=== PATIENT | male | born 1970 | race Caucasian/White ===

== ENCOUNTER 2018-06-08 09:41 | Inpatient (IN) | payer OTHER ==
--- OUTSIDE RECORDS SUMMARY | 2018-06-08 10:30 | XMS REPORT ---
:1970 External Reference #:[id number] Author Organization [facility] Address [address] [place] [address] Phone [phone] Care Team Providers Name Role Phone Chucho Yeager M.D. 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 Active Family History Date Family Member(s) Problem(s) Comments Father No Current Problems Mother No Current Problems Social History Type Date Description Comments Marital Status Single Occupation [employer] Work Status Full-Time Employment ETOH Use Denies alcohol use Smoking Patient is a former smoker QUIT: 2007 Recreational Drug Use Denies Drug Use Daily Caffeine Consumes on average 3 cups of regular coffee per day Allergies, Adverse Reactions, Alerts Date Description Reaction Status Severity Comments 05/26/2018 Simvastatin CRAMPS active Medications Medication Date Status Form Strength Qnty SIG Indications Ordering Provider Metformin HCL / Active Tablets 1000mg Take One Tablet Unknown 0000 By Mouth Twice A Day Lantus 00/ Active Solution 100Unit/M Inject 20 Units Unknown Solostar 0000 Pen-Injec L Subcutaneously t AT Bedtime Lisinopril / Active Tablets 5mg Take One Tablet Unknown 0000 By Mouth Every Day Fenofibrate 00/ Active Capsules 145mg Unknown 0000 Results Description No Information Procedures Description No Information Plan of Care 05/26/2018 - Hunter Ram M.D.[id number] Type 2 diab with mild nonp rtnop without macular edema, biComments:Smoking can increase the risk of developing or worsening any eye related disease, as well as affect your overall health. If you are a smoker, we strongly recommend that you quit.If you are not a smoker , we strongly recommend that you do not start. I can detect diabetic changes in your eyes. Proper control of your diabetes is important for the health of your eyes. It is important that you keep all of your follow up appointments.Follow up:1 Year Follow Up DFE You can expect to have your eyes dilated at your next visit. If Dr. Ram orders any additional testing, it may require extra time. We recommend that you bring sunglasses, as dilation drops often make you light sensitive until they wear off. We always recommend you bring someone to drive you home if you are uncomfortable driving with your eyes dilated. If you have any questions before your next visit, feel free to call our office at .H25.13 Age-related nuclear cataract, bilateralComments:You have been diagnosed with cataracts. If you are happy with your vision as it is now, then we willsee you at your next scheduled appointment. If you feel like your vision is getting worse before your scheduled appointment, please call Jerrica or Carolyn at [phone].H52.13 Myopia, bilateralComments:You have Myopia, or near sightedness. I have given you a prescription for glasses.H52.4 Presbyopia
--- OUTSIDE RECORDS SUMMARY | 2018-06-08 10:30 | XMS REPORT ---
:1970 External Reference #:[id number] Author Organization [facility] Address [address] [place] [address] Phone [phone] Care Team Providers Name Role Phone Chucho Yeager MD Care Team Information Language Assistant Unavailable Chucho Yeager MD Primary Care Physician Unavailable Payers Type Date Identification Numbers Payment Provider Subscriber Health Maintenance Effective: Policy Number: Ronnie Nguyen Organization (O) 11/22/[id number] [facility] Group Number: [id number] [id number] Group Name: [facility] [place] [address] PayID: [id number] Problems Date Description Provider Status Onset: 09/13/2012 Type II diabetes mellitus uncontrolled Chucho Yeager M.D. Active Onset: 10/10/2012 Hyperlipidemia Chucho Yeager M.D. Active Onset: 01/20/2016 Essential hypertension Chucho Yeager M.D. Active Onset: 01/20/2016 Mixed hyperlipidemia Chucho Yeager M.D. Active Family History Date Family Member(s) Problem(s) Comments Mother Diabetes Mellitus, II Mother due to Diabetes () - age 60 Social History Type Date Description Comments Lives With Female Partner Work Status Full-Time Employment ETOH Use Occasional Smoking Patient is a former smoker > 10 years Recreational Drug Use Denies Drug Use Daily Caffeine Consumes on average 3 cups of coffee per day Exercise Type/Frequency Exercises regularly walks regularly , some lifting Allergies, Adverse Reactions, Alerts Date Description Reaction Status Severity Comments 01/02/2013 Simvastatin cramps active 09/06/2012 NKDA inactive Medications Medication Date Status Form Strength Qnty SIG Indications Ordering Provider Christi Haley 05/12 Active Solution 100Unit/M 15ml inject 20 Chucho Pen-Injec L units sub Darlow, t every under M.D. the skin at hs BD Pen 05/12 Active Misc 31G X 8 100un use daily w/ Chucho Bradford Needle/Short/Ult mm its lantus - dx: hannah Yeagerine/31G X e11.9 - last M.D. 04/06" seen 05/11/18 Cyclobenzaprine 03/21 Active Tablets 5mg 14tab take 1-2 M79.662 Maria Dolores Jessica HCL s tablets by Bailey, mouth at [employer] night as needed for muscle spasm Fenofibrate 02/15 Active Capsules 67mg 30cap Take One Anita Micronized s Capsule By Nabor, Mouth Every [employer] Day Fenofibrate 01/11 Active Tablets 145mg 90tab 1 by mouth Anita s every day JAVIER Tomlin Cialis 03/21 Active Tablets 5mg 10tab Take 1 G99.0 s Tablet By Toy, Mouth 20 M.D. Miinutes Before [place] Onetouch Ultra 11/26 Active Kit W/Device 1unit test blood Tarsha s sugar twice [facility], or as Afnp-C directed daily dx: e11.9 Onetouch Ultra 11/26 Active Strips 100un test blood Chucho A. Smart Test its sugar twice Darlow, Strips daily or as M.D. directed dx:e11.9 last office visit 01/27/16 Lisinopril 01/07 Active Tablets 5mg 30tab Take One E11.65 Anita /2015 s Tablet By Nabor, Mouth Every [employer] Day Metformin HCL 08/23 Active Tablets 1000mg 60tab take one E11.65 Anita /2013 s tablet by Nabor, mouth twice [employer] a day Lantus 05/12 Hx Solution 100Unit/M 3unit 20 units at Chucho L s bedtime Dean Yeager M.DAdilene 05/12 Levofloxacin 01/11 Hx Tablets 500mg 10tab 1 by mouth J01.90 Chucho A. s every day Dean Yeager M.DAdilene 01/21 Glyxambi 01/11 Hx Tablets 25-5mg 90tab 1 by mouth E11.65 s every day [facility], - [facility] 05/12 Keflex 10/21 Hx Capsules 500mg 14cap 1 by mouth L03.032 s twice a day [facility], - x 7 days [facility] 09/06 Fenofibrate Hx Capsules 67mg 30cap take one Anita Micron s capsule by [facility], - mouth every [employer] Onetouch Basic 11/26 Hx Kit W/Device 1unit test blood Agenda A. s sugar twice [facility], - or as M.D. 11/26 daily dx: E11.9 Glyxambi 06/17 Hx Tablets 10-5mg 30tab take one E11.65 Chucho . [facility], [facility] mouth every M.D. Work Excuse 01/16 Hx patient is 250.02 under [facility], - medical care [employer] 02/17 and needs administer insulin daily, thusly requires needles Pen [place] 31G 01/15 Hx Misc 31G 120un use with E11.65 Anita X its solostar/perla [facility], - tus pen 1 [employer] 05/12 twice a day Lantus Solostar 01/08 Hx Solution 100Unit/M QS inject 40 250.02 Pen-Injec L units every [facility], - t evening [facility] 06/17 Januvia 05/28 Hx Tablets 100mg 30tab Take One Chucho A. s Tablet By Darlow, - Mouth Every M.D. Viagra 05/28 Hx Tablets 100mg 10tab Take 1/2 To G99.0 Chucho A. s 1 Tablet By Darlow, - Mouth 15 M.D. Prior To Sexual Activity as Directed Januvia 11/07 Hx Tablets 50mg 30tab Take One Chucho A. s Tablet By Darlow, - Mouth Every M.D. Glipizide ER 08/23 Hx Tablets 10mg 30tab Take One 250.02 Chucho A. ER 24HR s Tablet By Darlow, - Mouth Every M.D. Fenofibrate 01/30 Hx Capsules 67mg 30cap Take One 272.4 Chucho A. Micron s Capsule By Darlow, - Mouth Every M.D. Glipizide ER 01/02 Hx Tablets 5mg 30tab Take One 250.02 Chucho A. ER 24HR s Tablet By Darlow, - Mouth Every M.D. Amoxicillin/Pota 12/17 Hx Tablets 875-125mg 20tab 1 po bid 461.0 Dunia ssi s with food Rodri, Clavulanate - [employer] 01/02 Simvastatin 11/23 Hx Tablets 10mg 30tab take 1 272.4 Chucho A. s tablet at [facility], - bedtime M.D. 01/02 Metformin HCL 10/10 Hx Tablets 500mg 90tab Take One 250.02 Chucho A. s Tablet By Darjacquie, - Mouth Every M.D. 08/23 Morning And Take Two Tablets By Mouth AT Bedtime Freestyle 09/12 Hx Misc 100un test bs bid Chucho A. or as Toy - directed M.D. 11/26 /2015 250.02 Freestyle Test 09/12 Hx Strips 100un use every Chucho A. Strips its day or as Toy - directed M.D. 11/26 dx:250.02 Nicoderm CQ 09/06 Hx Patches 14mg/24HR 30uni 1 qd x 1 305.1 Chucho A. 24HR ts month Toy - M.D. 10/10 Lisinopril 09/06 Hx Tablets 2.5mg 30tab Take Two 250.02 Chucho A. s Tablets By Darlow, - Mouth In The M.D. 01/07 Immunizations CPT Code Status Date Vaccine Lot # [id number] Given 09/07/2017 Influenza Vac, Quadrivalent, Slit Virus, Im [id number] Given 10/21/2016 Influenza Vac, Quadrivalent, Slit Virus, Im [id number] Given 01/27/2016 Influenza Vac, Quadrivalent, Slit Virus, Im [id number] 16887 Given 11/06/2013 Preservative free flu 3 yrs+ and older [id number] 62552 Given 09/06/2012 Tdap Tetanus, W Pertussis [id number] Given 09/06/2012 DO Not Use Split Influenza Virus Vaccine [id number] Vital Signs Date Vital Result Comment 05/16/2018 BP Systolic 122 mmHg BP Diastolic 78 mmHg Heart Rate 86 /min Body Temperature 98.0 F Respiratory Rate 16 /min 05/11/2018 BP Systolic 110 mmHg BP Diastolic 78 mmHg Heart Rate 78 /min Body Temperature 97.9 F Respiratory Rate 18 /min Height 71.5 inches 5'11.50" Weight 222.00 lb BMI (Body Mass Index) 30.5 kg/m2 03/21/2018 BP Systolic 142 mmHg BP Diastolic 92 mmHg Heart Rate 92 /min Height 71.5 inches 5'11.50" Weight 231.00 lb BMI (Body Mass Index) 31.8 kg/m2 01/11/2018 BP Systolic 124 mmHg BP Diastolic 74 mmHg Heart Rate 76 /min Body Temperature 98.1 F Respiratory Rate 16 /min Height 71.5 inches 5'11.50" Weight 225.00 lb BMI (Body Mass Index) 30.9 kg/m2 10/11/2017 BP Systolic 130 mmHg BP Diastolic 80 mmHg Heart Rate 96 /min Body Temperature 97.7 F Height 71.5 inches 5'11.50" Weight 221.00 lb BMI (Body Mass Index) 30.4 kg/m2 09/07/2017 BP Systolic 124 mmHg BP Diastolic 80 mmHg Heart Rate 84 /min Body Temperature 99.0 F Respiratory Rate 16 /min Height 71.5 inches 5'11.50" Weight 224.00 lb BMI (Body Mass Index) 30.8 kg/m2 10/21/2016 BP Systolic 116 mmHg BP Diastolic 72 mmHg Heart Rate 120 /min Body Temperature 98.1 F Height 71.5 inches 5'11.50" Weight 220.12 lb BMI (Body Mass Index) 30.3 kg/m2 01/27/2016 BP Systolic 138 mmHg BP Diastolic 82 mmHg Heart Rate 80 /min Body Temperature 97.9 F Respiratory Rate 18 /min Height 71.5 inches 5'11.50" Weight 220.00 lb BMI (Body Mass Index) 30.3 kg/m2 Right Visual Acuity Distance 20/20 With Corrective Lenses Left Visual Acuity Distance 20/20 01/20/2016 BP Systolic 130 mmHg BP Diastolic 90 mmHg Heart Rate 80 /min Body Temperature 97.2 F Respiratory Rate 16 /min Height 71.5 inches 5'11.50" Weight 220.00 lb BMI (Body Mass Index) 30.3 kg/m2 07/01/2015 BP Systolic 132 mmHg BP Diastolic 80 mmHg Heart Rate 80 /min Body Temperature 98.0 F Respiratory Rate 18 /min Height 71.5 inches 5'11.50" Weight 223.00 lb BMI (Body Mass Index) 30.7 kg/m2 06/07/2015 BP Systolic 152 mmHg BP Diastolic 86 mmHg Heart Rate 88 /min Body Temperature 98.5 F Respiratory Rate 16 /min Height 71.5 inches 5'11.50" Weight 230.50 lb BMI (Body Mass Index) 31.7 kg/m2 Right Visual Acuity Distance 20/20 with glasses Left Visual Acuity Distance 20/20 05/27/2015 BP Systolic 124 mmHg BP Diastolic 80 mmHg Heart Rate 72 /min Body Temperature 97.1 F Respiratory Rate 16 /min Height 71.5 inches 5'11.50" Weight 228.00 lb BMI (Body Mass Index) 31.4 kg/m2 02/18/2015 BP Systolic 124 mmHg BP Diastolic 80 mmHg Heart Rate 98 /min Body Temperature 97.5 F Height 71.5 inches 5'11.50" Weight 233.00 lb BMI (Body Mass Index) 32.0 kg/m2 01/16/2015 BP Systolic 124 mmHg BP Diastolic 82 mmHg Heart Rate 88 /min Body Temperature 98.2 F Respiratory Rate 16 /min Height 71.5 inches 5'11.50" Weight 233.00 lb BMI (Body Mass Index) 32.0 kg/m2 01/07/2015 BP Systolic 140 mmHg BP Diastolic 100 mmHg Heart Rate 100 /min Body Temperature 98.2 F Respiratory Rate 16 /min Height 71.5 inches 5'11.50" Weight 233.00 lb BMI (Body Mass Index) 32.0 kg/m2 06/06/2014 BP Systolic 154 mmHg BP Diastolic 110 mmHg Heart Rate 78 /min Body Temperature 98.4 F Respiratory Rate 15 /min Height 71.5 inches 5'11.50" Weight 231.00 lb BMI (Body Mass Index) 31.8 kg/m2 Right Visual Acuity Distance 20/20 corrected Left Visual Acuity Distance 20/20 corrected 05/28/2014 BP Systolic 140 mmHg BP Diastolic 90 mmHg Heart Rate 88 /min Body Temperature 98.1 F Respiratory Rate 16 /min Height 71.5 inches 5'11.50" Weight 231.00 lb BMI (Body Mass Index) 31.8 kg/m2 11/06/2013 BP Systolic 130 mmHg BP Diastolic 92 mmHg Heart Rate 88 /min Body Temperature 98.4 F Respiratory Rate 12 /min Height 71.5 inches 5'11.50" Weight 232.00 lb BMI (Body Mass Index) 31.9 kg/m2 01/30/2013 BP Systolic 120 mmHg BP Diastolic 80 mmHg Heart Rate 88 /min Body Temperature 97.8 F Respiratory Rate 12 /min Height 71.5 inches 5'11.50" Weight 213.00 lb BMI (Body Mass Index) 29.3 kg/m2 01/02/2013 BP Systolic 120 mmHg BP Diastolic 80 mmHg Heart Rate 88 /min Body Temperature 97.9 F Respiratory Rate 16 /min Height 71.5 inches 5'11.50" Weight 210.00 lb BMI (Body Mass Index) 28.9 kg/m2 12/17/2012 BP Systolic 130 mmHg BP Diastolic 80 mmHg Heart Rate 82 /min Body Temperature 98.5 F Height 71.5 inches 5'11.50" Weight 213.00 lb BMI (Body Mass Index) 29.3 kg/m2 11/23/2012 BP Systolic 120 mmHg BP Diastolic 78 mmHg Heart Rate 84 /min Body Temperature 97.1 F Respiratory Rate 12 /min Height 71.5 inches 5'11.50" Weight 211.00 lb BMI (Body Mass Index) 29.0 kg/m2 10/10/2012 BP Systolic 122 mmHg BP Diastolic 80 mmHg Heart Rate 84 /min Body Temperature 96.7 F Respiratory Rate 16 /min Height 71.5 inches 5'11.50" Weight 210.00 lb BMI (Body Mass Index) 28.9 kg/m2 09/06/2012 BP Systolic 136 mmHg BP Diastolic 100 mmHg Heart Rate 76 /min Body Temperature 97.6 F Respiratory Rate 16 /min Height 71.5 inches 5'11.50" Weight 212.00 lb BMI (Body Mass Index) 29.2 kg/m2 Right Visual Acuity Distance 20/20 Left Visual Acuity Distance 20/20 Results Test Date Test Result H/L Range Note Lipid Profile 05/11/2018 Cholesterol 230 mg/dL High 120-200 Triglycerides 139 mg/dL 30-200 HDL Cholesterol 50 mg/dL 30-70 LDL (Calculated) 152 CALC High 0-129 VLDL Cholesterol 28 mg/dL 0-50 HDL Risk Factor 4.6 CALC High 0.0-4.4 Comprehensive Metabolic Prof 05/11/2018 Sodium 134 mEq/L 134-149 Potassium 4.4 mEq/L 3.6-5.5 Chloride 97 mEq/L 94-112 Carbon Dioxide 24 mEq/L 21-32 Glucose 245 mg/dL High 70-105 1 BUN 18 mg/dL 6-26 Creatinine 0.6 mg/dL 0.6-1.4 BUN/Creat Ratio 30.0 CALC 8.0-36.0 Calcium 9.8 mg/dL 8.6-10.2 Total Protein 7.2 g/dL 6.4-8.3 Albumin 4.7 g/dL 3.8-5.5 Globulin 2.5 g/dL 2.0-4.8 A/G Ratio 1.9 CALC 0.6-2.3 Alk. Phosphatase 49 U/L 22-95 Alt (SGPT) 19 U/L 7-35 Ast (Sgot) 13 U/L 5-34 Total Bilirubin 0.9 mg/dL 0.2-1.3 GFR Non- >60 ml/min/1.73m^ >=60 GFR >60 ml/min/1.73m^ >=60 Laboratory test finding 05/11/2018 Hemoglobin A1c (Fma) 10.7 % % High 4.1- 5.7 Lipid Profile 01/11/2018 Cholesterol 212 mg/dL High 120-200 Triglycerides 186 mg/dL 30-200 HDL Cholesterol 47 mg/dL 30-70 LDL (Calculated) 128 CALC 0-129 VLDL Cholesterol 37 mg/dL 0-50 HDL Risk Factor 4.5 CALC High 0.0-4.4 Comprehensive Metabolic Prof 01/11/2018 Sodium 140 mEq/L 134-149 Potassium 4.4 mEq/L 3.6-5.5 Chloride 104 mEq/L 94-112 Carbon Dioxide 22 mEq/L 21-32 Glucose 385 mg/dL High 70-105 2 BUN 14 mg/dL 6-26 Creatinine 0.6 mg/dL 0.6-1.4 BUN/Creat Ratio 23.3 CALC 8.0-36.0 Calcium 9.7 mg/dL 8.6-10.2 Total Protein 7.2 g/dL 6.4-8.3 Albumin 4.6 g/dL 3.8-5.5 Globulin 2.6 g/dL 2.0-4.8 A/G Ratio 1.8 CALC 0.6-2.3 Alk. Phosphatase 48 U/L - Alt (SGPT) 17 U/L 7-35 Ast (Sgot) 10 U/L 5-34 Total Bilirubin 0.8 mg/dL 0.2-1.3 GFR Non- >60 ml/min/1.73m^ >=60 GFR >60 ml/min/1.73m^ >=60 Laboratory test finding 01/11/2018 Hemoglobin A1c (Fma) 9.9 % High 4.1- 5.7 Comprehensive Metabolic Prof 10/07/2017 Sodium 137 mEq/L 134-149 Potassium 4.5 mEq/L 3.6-5.5 Chloride 103 mEq/L 94-112 Carbon Dioxide 21 mEq/L 21-32 Glucose 231 mg/dL High 70-105 3 BUN 18 mg/dL 6-26 Creatinine 0.6 mg/dL 0.6-1.4 BUN/Creat Ratio 30.0 CALC 8.0-36.0 Calcium 9.3 mg/dL 8.6-10.2 Total Protein 6.8 g/dL 6.4-8.3 Albumin 4.5 g/dL 3.8-5.5 Globulin 2.3 g/dL 2.0-4.8 A/G Ratio 2.0 CALC 0.6-2.3 Alk. Phosphatase 44 U/L -95 Alt (SGPT) 15 U/L 7-35 Ast (Sgot) 11 U/L 5-34 Total Bilirubin 1.1 mg/dL 0.2-1.3 GFR Non- >60 ml/min/1.73m^ >=60 GFR >60 ml/min/1.73m^ >=60 Complete Blood Count 10/07/2017 WBC 7.1 x10^3/UL 3.6-9.6 RBC 5.29 x10^6/UL 3.90-5.70 HGB 15.9 g/dL 12.1-17.2 HCT 46 % 36-50 MCV 87.0 fL 82.2-97.4 MCH 30.1 pg 27.6-33.3 MCHC 34.5 g/dL 33.0-35.5 RDW 13.1 % 11.6-13.7 PLT 152 x10^3/UL 150-400 MPV 8.1 fL 7.4-10.4 Gran # 5.1 x10^3/UL 1.5-7.2 Lymph# 1.7 x10^3/UL 0.7-4.9 Kidder# 0.3 x10^3/UL 0.1-0.9 Gran % 70.6 % 42.2-75.2 Lymph % 24.3 % 20.5-51.1 Kidder% 5.1 % 1.7-9.3 Lipid Profile 10/07/2017 Cholesterol 201 mg/dL High 120-200 Triglycerides 82 mg/dL 30-200 HDL Cholesterol 44 mg/dL 30-70 LDL (Calculated) 141 CALC High 0-129 VLDL Cholesterol 16 mg/dL 0-50 HDL Risk Factor 4.6 CALC High 0.0-4.4 Laboratory test finding 09/07/2017 Hemoglobin A1c (Fma) 9.5 % High 4.1- 5.7 Laboratory test finding 10/21/2016 Hemoglobin A1c (Fma) 9.1 % High 4.1- 5.7 Ua - Non Micro (Fma) 01/27/2016 Appearance CLEAR Color YELLOW Glucose, Urine (Fma/CMC/CTX) 500 Bilirubin NEG Ketones 15 SP Grav 1.020 Blood TRACE-LYSED PH 6.0 Protein 30 Urobil 0.2 Nitrite NEG Leukocytes (Fma/CMC/Centrex) NEG Microalb/Creatinine, Random 01/20/2016 Microalb, Random 82.4 mg/L High 0.5 -37 Ur (Fma/CMC/CTX) Urine Creatinine (F/C/CTX) 3.4 nmol/L Microalb.,Creatinine (F/C/CTX) 24.2 Laboratory test finding 01/20/2016 Hemoglobin A1c (Fma) 7.9 % High 4.1- 5.7 Lipid Profile 01/20/2016 Cholesterol 229 mg/dL High 120-200 Triglycerides 112 mg/dL 30-200 HDL Cholesterol 49 mg/dL 30-70 LDL (Calculated) 158 CALC High 0-129 VLDL Cholesterol 22 mg/dL 0-50 HDL Risk Factor 4.7 CALC High 0.0-4.4 Comprehensive Metabolic Prof 01/20/2016 Sodium 134 mEq/L 134-149 Potassium 4.0 mEq/L 3.6-5.5 Chloride 99 mEq/L 94-112 Carbon Dioxide 25 mEq/L 21-32 Glucose 201 mg/dL High 70-105 4 BUN 15 mg/dL 6-26 Creatinine 0.6 mg/dL 0.6-1.4 BUN/Creat Ratio 25.0 CALC 8.0-36.0 Calcium 9.7 mg/dL 8.6-10.2 Total Protein 7.4 g/dL 6.4-8.3 Albumin 4.8 g/dL 3.8-5.5 Globulin 2.6 g/dL 2.0-4.8 A/G Ratio 1.8 CALC 0.6-2.3 Alk. Phosphatase 48 U/L 22-95 Alt (SGPT) 16 U/L 7-35 Ast (Sgot) 25 U/L 5-34 Total Bilirubin 1.2 mg/dL 0.2-1.3 GFR Non- >60 ml/min/1.73m^ >=60 GFR >60 ml/min/1.73m^ >=60 Complete Blood Count 01/20/2016 WBC 6.2 x10^3/UL 3.6-9.6 RBC 5.26 x10^6/UL 3.90-5.70 HGB 15.8 g/dL 12.1-17.2 HCT 46 % 36-50 MCV 88.0 fL 82.2-97.4 MCH 30.1 pg 27.6-33.3 MCHC 34.1 g/dL 33.0-35.5 RDW 12.9 % 11.6-13.7 PLT 217 x10^3/UL 150-400 MPV 7.6 fL 7.4-10.4 Gran # 4.2 x10^3/UL 1.5-7.2 Lymph# 1.7 x10^3/UL 0.7-4.9 Kidder# 0.3 x10^3/UL 0.1-0.9 Gran % 66.7 % 42.2-75.2 Lymph % 28.0 % 20.5-51.1 Kidder% 5.3 % 1.7-9.3 Laboratory test finding 01/20/2016 TSH 2.93 mIU/L 0.50-6.00 Ua - Non Micro (a) 06/07/2015 Appearance CLEAR Color YELLOW Glucose, Urine (a/[facility]/CTX) NEG Bilirubin NEG Ketones NEG SP Grav <=1.005 Blood NEG PH 5.5 Protein NEG Urobil 0.2 Nitrite NEG Leukocytes ([facility]/Centrex) NEG Laboratory test finding 05/27/2015 Hemoglobin A1c 10.4 % % High 4.1-5.7 (a/CMC,CX) Laboratory test finding 01/07/2015 Hemoglobin A1c 9.2 % High 4.1-5.7 (a/[facility],CX) Lipid Profile 01/07/2015 Cholesterol 215 mg/dL High 120-200 Triglycerides 201 mg/dL High 30-200 HDL Cholesterol 54 mg/dL 30-70 LDL (Calculated) 121 CALC 0-129 VLDL Cholesterol 40 mg/dL 0-50 HDL Risk Factor 4.0 CALC 0.0-4.4 Comprehensive Metabolic Prof 01/07/2015 Sodium 138 mEq/L 134-149 Potassium 3.9 mEq/L 3.6-5.5 Chloride 102 mEq/L 94-112 Carbon Dioxide 26 mEq/L 21-32 Glucose 203 mg/dL High 70-105 5 BUN 18 mg/dL 6-26 Creatinine 0.7 mg/dL 0.6-1.4 BUN/Creat Ratio 25.7 CALC 8.0-36.0 Calcium 10.2 mg/dL 8.6-10.2 Total Protein 7.6 g/dL 6.4-8.3 Albumin 4.6 g/dL 3.8-5.5 Globulin 3.0 g/dL 2.0-4.8 A/G Ratio 1.5 CALC 0.6-2.3 Alk. Phosphatase 43 U/L 22-95 Alt (SGPT) 18 U/L 7-35 Ast (Sgot) 13 U/L 5-34 Total Bilirubin 1.5 mg/dL High 0.2-1.3 6 Total And Direct Bili 01/07/2015 Total Bilirubin 1.5 mg/dL High 0.2-1.3 7 Direct Bilirubn 0.4 mg/dL 0.0-0.6 Indirect Bilirubin 1.10 mg/dL High 0.10-1.00 Ua - Non Micro (a) 06/06/2014 Appearance clear Color yellow Glucose neg Bilirubin neg Ketones neg SP Grav 1.020 Blood neg PH 5.5 Protein neg Urobil 0.2 Nitrite neg Leukocytes (a/[facility]/Centrex) neg Total And Direct Bili 05/28/2014 Total Bilirubin 1.6 mg/dL High 0.2-1.3 8 Direct Bilirubn 0.4 mg/dL 0.0-0.6 Indirect Bilirubin 1.20 mg/dL High 0.10-1.00 Lipid Profile 05/28/2014 Cholesterol 205 mg/dL High 120-200 Triglycerides 142 mg/dL 30-200 HDL Cholesterol 53 mg/dL 30-70 LDL (Calculated) 124 CALC 0-129 VLDL Cholesterol 28 mg/dL 0-50 HDL Risk Factor 3.9 CALC 0.0-4.4 Comprehensive Metabolic Prof 05/28/2014 Sodium 134 mEq/L 134-149 9 Potassium 4.2 mEq/L 3.6-5.5 Chloride 100 mEq/L 94-112 Carbon Dioxide 24 mEq/L 21-32 Glucose 229 mg/dL High 70-105 10 BUN 12 mg/dL 6-26 Creatinine 0.7 mg/dL 0.6-1.4 BUN/Creat Ratio 17.1 CALC 8.0-36.0 Calcium 9.6 mg/dL 8.6-10.2 Total Protein 7.6 g/dL 6.3-8.1 Albumin 5.1 g/dL 3.8-5.5 Globulin 2.5 g/dL 2.0-4.8 A/G Ratio 2.0 CALC 0.6-2.3 Alk. Phosphatase 53 U/L 22-95 Alt (SGPT) 23 U/L 7-35 Ast (Sgot) 10 U/L 5-34 Total Bilirubin 1.6 mg/dL High 0.2-1.3 11 Laboratory test finding 05/28/2014 Hemoglobin A1c 8.1 % High 4.1-5.7 (a/[facility],CX) Surgical Pathology 12/07/2013 S RUN DATE: 12/14/ <SEE NOTE> Surgical Pathology 11/16/2013 S RUN DATE: 11/20/ <SEE NOTE> Comprehensive Metabolic 11/06/2013 Albumin 4.8 g/dL 3.8-5.5 Prof Alk. Phos. 53 U/L 22-95 Alt (SGPT) 18 U/L 10-40 Ast (Sgot) 13 U/L 5-34 BUN 13 mg/dL 6-26 Calcium 9.1 mg/dL 8.6-10.2 Chloride 96 mEq/L 94-112 Creatinine 0.8 mg/dL 0.6-1.4 Carbon Dioxide 24 mEq/L 21-32 Glucose 293 mg/dL High 70-105 14 Sodium 135 mEq/L 134-149 Total Bilirubin 1.0 mg/dL 0.2-1.3 Total Protein 7.1 g/dL 6.3-8.1 Potassium 3.9 mEq/L 3.6-5.5 Globulin 2.3 g/dL 2.0-4.8 A/G Ratio 2.1 Calc 0.6-2.3 BUN/Creat Ratio 17.8 Calc 8.0-36.0 Lipid Profile 11/06/2013 Cholesterol 210 mg/dL High 120-200 HDL 56 mg/dL 30-70 Triglycerides 173 mg/dL 30-200 HDL Risk Factor 3.8 CALC 0.0-4.4 LDL (Calculated) 119 CALC 0-129 VLDL (Calculated) 35 mg/dL 0-50 Laboratory test finding 11/06/2013 Hemoglobin A1c (a/CMC,CX) 9.6 % High 4.1-5.7 Laboratory test finding 08/23/2013 Hemoglobin A1c (a/CMC,CX) 9.7 % High 4.1-5.7 Laboratory test finding 01/30/2013 Hemoglobin A1c (a/CMC,CX) 9.1 % High 4.1-5.7 Ua - Non Micro ([facility]) 09/06/2012 Appearance yellow Color clear Glucose 500mg/dL dr. mclain Bilirubin neg Ketones 15mg/dL SP Grav 1.020 Blood neg PH 5.5 Protein nrg Urobil 0.2 Nitrite neg Leukocytes (a/CMC/Centrex) neg CBC Electronic ([facility]) 08/24/2012 WBC 6.9 3.6-9.6 RBC 5.57 3.90-5.70 Hemoglobin (Fma/CMC/CTX) 16.5 g/dL 12.1 - 17.2 Hematocrit (a/CMC/CTX) 49.5 % 36.1 - 50.3 Platelets 173 10^3/ul 150-400 Lymph% 38.6 20.5-51.1 Mixed% 4.7 Neutrophils % 56.7 Mean Corpuscular Vol 89 82.2-97.4 Mean Corpuscular Hemoglobin 29.7 27.6-33.3 Mean Corpuscular Hemo Concen 33.4 32.0-36.0 RDW 10.3 Low 11.6-13.7 Mean Platelet Volume 7.6 6.5-11.0 Laboratory test finding 08/24/2012 Hemoglobin A1c 12.6 % High 4.1-5.7 (Fma/CMC,CX) Comprehensive Metabolic 08/24/2012 Albumin 4.7 g/dL 3.8-5.5 Prof Alk. Phos. 68 U/L 22-95 Alt (SGPT) 19 U/L 10-40 Ast (Sgot) 14 U/L 5-34 BUN 13 mg/dL 6-26 Calcium 9.5 mg/dL 8.6-10.2 Chloride 98 mEq/L 94-112 Creatinine 0.7 mg/dL 0.6-1.4 Carbon Dioxide 25 mEq/L 21-32 Glucose 297 mg/dL High 70-105 15 Sodium 137 mEq/L 134-149 Total Bilirubin 1.4 mg/dL High 0.2-1.3 16 Total Protein 7.3 g/dL 6.3-8.1 Potassium 3.9 mEq/L 3.6-5.5 Globulin 2.6 g/dL 2.0-4.8 A/G Ratio 1.8 Calc 0.6-2.2 BUN/Creat Ratio 19.4 Calc 8.0-36.0 Lipid Profile 08/24/2012 Cholesterol 245 mg/dL High 120-200 HDL 44 mg/dL 30-70 Triglycerides 147 mg/dL 30-200 HDL Risk Factor 5.6 CALC High 0.0-4.4 LDL (Calculated) 172 CALC High 0-129 VLDL (Calculated) 29 mg/dL 0-50 Total And Direct Bili 08/24/2012 Direct Bilirubin 0.4 mg/dL 0.0-0.6 Indirect Bilirubin 0.98 0.10-1.00 1 consistent w/ previous results 2 RESULTS VERIFIED BY REPEAT ANALYSIS 3 consistent w/ previous results 4 consistent w/ previous results 5 RESULTS VERIFIED BY REPEAT ANALYSIS 6 RESULTS VERIFIED BY REPEAT ANALYSIS 7 RESULTS VERIFIED BY REPEAT ANALYSIS 8 RESULTS VERIFIED BY REPEAT ANALYSIS 9 RESULTS VERIFIED BY REPEAT ANALYSIS 10 RESULTS VERIFIED BY REPEAT ANALYSIS 11 RESULTS VERIFIED BY REPEAT ANALYSIS 12 RUN DATE: 12/14/13 [facility] LAB LIVE PAGE 1 RUN TIME: [address] [place] [id number] Specimen Inquiry Name: GERTRUDIS NGUYEN : [address]: Kun Crooks MD Acct: [id number] Unit: [id number] AGE: 43 Location: [facility] Re12/07/13 SEX: M Status: REG REF SPEC: [id number] CASSIA: 12/07/13- SUBM DR: Kun Crooks MD REQ: [id number] RECD: 12/07/13 STATUS: ERLINDA MCDERMOTT DR: Chucho Yeager MD _ ORDERED: S-100, ACTIN STAIN, CD34 STAIN, LEVEL IV FINAL DIAGNOSIS Soft tissue, right hip mass, excision: Myxoma (see comment). COMMENTS: Sections show skin excised to include deep reticular dermis. Pools of mucinous material with scattrered individually arranged spindled cells are present dissecting through collagen bundles. Immunostains with appropriately reacting controls were performed with the following results: CD34 Positive. S100 Negative. SMA Negative. The above immunoprofile and morphology supports the diagnosis. Dr. Queen reviewed this case in intradepartmental consultation and agrees with the diagnosis. CLINICAL HISTORY Present 20+ years CONTINUED ON NEXT PAGE * ML=Testing performed at Main Lab DEPARTMENT OF PATHOLOGY, [address] [place] [address] Kashmir Queen M.D. Director [facility] Permit #[id number] RUN DATE: 12/14/13 [facility] LAB LIVE PAGE 2 RUN TIME: [address] [place] [id number] Specimen Inquiry Patient: GERTRUDIS NGUYEN [id number] (Continued) GROSS DESCRIPTION (Continued) GROSS DESCRIPTION The specimen is received in formalin labeled Gertrudis Nguyen, Right Hip Mass, and consists of a 5.0 x 3.8 x 1.8 cm. aggregate of multiple irregular dixon-white cystic portions of soft tissue. Several of the portions are partially surfaced by dixon-white unremarkable skin. The cut surface is glistening, dixon-white, and tenacious. Methodologist sections, two cassettes. Signed (signature on file) Anita Nguyễn MD 921 END OF REPORT * ML=Testing performed at Main Lab DEPARTMENT OF PATHOLOGY, [facility] [employer] [place], [place] [address] Kashmir Queen M.D. Director [facility] Permit #[id number] RUN DATE: 11/20/13 [facility] LAB LIVE PAGE 1 RUN TIME: 0600 [facility] [employer] [place], [place] [address] Specimen Inquiry Name: GERTRUDIS NGUYEN : [address]: Kun Crooks MD Acct: [id number] Unit: [id number] AGE: 43 Location: [facility] Re11/16/13 SEX: M Status: REG REF SPEC: [id number] CASSIA: 11/16/13- SUBM DR: Kun Crooks MD REQ: [id number] RECD: 11/16/13 STATUS: ERLINDA MCDERMOTT DR: Chucho Yeager MD _ ORDERED: LEVEL III FINAL DIAGNOSIS Axilla, left, excision: Mature adipose tissue compatible with lipoma. CLINICAL HISTORY No history given GROSS DESCRIPTION The specimen is received in formalin labeled Gertrudis Fine, Left Axilla Mass and consists of a 5.5 x 3.7 x 2.4 cm. irregular, dixon-white portion of adipose tissue which is partially surfaced by rogers-white, fibromembranous tissue. The cut surface is glistening, dixon-yellow and homogeneous. Methodologist sections, one cassette. Signed (signature on file) Kashmir Queen MD 1449 END OF REPORT * ML=Testing performed at Main Lab DEPARTMENT OF PATHOLOGY, [address] [place] [address] Kashmir Queen M.D. Director [facility] Permit #[id number] RESULT TRINI'D 15 RESULT TRINI'D 16 RESULT TRINI'D Procedures Date CPT Code Description Status 10/11/2017 Diabetic Foot Exam Completed 09/07/2017 07423 Finger Or Heel Stick Completed 10/21/2016 45846 Finger Or Heel Stick Completed 06/07/2015 84964 Vision Test- screening test of visual acuity, Completed quantitative, bila 05/27/2015 98920 Finger Or Heel Stick Completed 06/06/2014 42711 Vision Test- screening test of visual acuity, Completed quantitative, bila 08/23/2013 47734 Finger Or Heel Stick Completed 01/30/2013 96220 Finger Or Heel Stick Completed 09/06/2012 43734 CPHL SHQ Completed 09/06/2012 26598 Vision Test- screening test of visual acuity, Completed quantitative, bila Encounters Type Date Location Provider CPT E/M Dx Office Visit 05/11/2018 9:30a [facility] Office Chucho Yeager M.D. 77065 E11.65 E78.2 I10 Office Visit 03/21/2018 3:15p Main Office Maria Dolores Bailey, [place] 16641 M79.662 Office Visit 01/11/2018 9:30a [facility] Office Chucho Yeager M.D. 67709 E11.65 E78.2 I10 J01.90 Office Visit 09/07/2017 2:30p Main Office Anita Tomlin, [facility] 20934 E11.9 Z23 Office Visit 10/21/2016 1:30p [facility] Anita Tomlin [facility] 45156 L03.032 E11.9 Z23 Office Visit 01/27/2016 1:30p [facility] Tarsha Pollock Afnp-C 81338 Z02.4 Z23 Office Visit 01/20/2016 8:30a [facility] Office Chucho Yeager M.D. 99030 E11.65 E78.2 I10 Office Visit 07/01/2015 10:30a [facility] Office Anita Tomlin, [facility] 31545 250.02 Office Visit 06/07/2015 9:40a [facility] Office Taurus Shaw M.D. 84488 V70.5 V70.0 250.02 V72.0 Office Visit 05/27/2015 8:00a [facility] Office Anita Tomlin, [facility] 41170 250.02 401.1 272.4 Office Visit 02/18/2015 3:00p [facility] Office Anita Tomlin, [facility] 29811 250.02 401.1 Office Visit 01/16/2015 10:00a [facility] Office Anita Tomlin, [facility] 62333 250.02 Office Visit 01/07/2015 1:40p [facility] Office Chucho Yeager M.D. 29908 250.02 272.4 401.1 277.4 Office Visit 06/06/2014 2:30p Main Office Taurus Shaw M.D. 01905 V70.0 V70.3 Office Visit 05/28/2014 9:30a [facility] Chucho Yeager M.D. 02301 250.02 272.4 729.90 337.1 277.7 277.4 Office Visit 11/06/2013 4:30p [facility] Office Chucho Yeager M.D. 70712 250.02 272.4 729.90 V04.81 Office Visit 01/30/2013 8:30a [facility] Office Chucho Yeager M.D. 92857 250.02 272.4 729.5 Office Visit 01/02/2013 8:20a [facility] Chucho Yeager M.D. 64963 250.02 272.4 Office Visit 12/17/2012 11:15a [facility] Dunia Mace [facility] 83502 250.02 461.0 272.4 Office Visit 11/23/2012 4:40p [facility] Office Chucho Yeager M.D. 70675 250.02 272.4 Office Visit 10/10/2012 10:20a [facility] Office Chucho Yeager M.D. 48624 250.02 272.4 Office Visit 09/06/2012 9:00a [facility] Office Chucho Yeager M.D. 26461 V70.0 250.02 305.1 272.4 V04.81 V06.5 Plan of Care 05/16/2018 - Umair ParnellCE11.65 Type 2 diabetes mellitus with hyperglycemiaFollow up:Followup:. (Follow up)AllComments:~B_~U_Medication Management~b_~u_ Patient Understands medications he's taking? Yes No Are there Barriers to Adherence? Yes No Has the patient been asked about herbal supplements and therapies, and OTC meds? Yes No ~B_~U_Care Plan~b_~u_1. Patient has been queried about patient's goals/preferences and functional/lifestyle goals at relevant visits. If relevant, describe: na2. Treatment goals as explained to the patient: aboveimprove blood sugar control 3. Are there barriers to meeting treatment goals? Yes No If Yes, please describe:4. Self-Management goals asdescribed to the patient: Yes No continue dietary rx along with insulin call with you meter and we can refill your testing strips
[2018-06-08] MEDS ORDERED: Piperacillin/Tazobac ADVAN(*) 3.375 GM in NS 0.9% 100 ML* 100 ML IVPB ONE (10:41)
[2018-06-08 10:47] LABS: ABS Basophils 0.1 10^3/ul (0-0.2); ABS Eosinophils 0.1 10^3/ul (0-0.6); ABS Lymphocytes 1.6 10^3/ul (1.0-4.8); ABS Monocytes 0.7 10^3/ul (0-0.8); ABS Nucleated RBC 0 10^3/ul; Eosinophil % 1.3 % (0-6); Hematocrit 46 % (42-52); Hemoglobin 16.1 g/dl (14.0-18.0); Lymphocyte % 16.9 % (25-47); Mean Corpuscular HGB Conc 35 g/dl (31-36); Mean Corpuscular Hemoglobin 29 pg (27-31); Mean Corpuscular Volume 84 fL (80-94); Mean Platelet Volume 8.8 um3 (7.4-10.4); Nucleated Red Blood Cells % 0.1; Platelet Count 198 10^3/ul (150-450); Red Blood Count 5.51 10^6/ul (4.00-5.40); Red Cell Distribution Width 13 % (10.5-15); White Blood Count 9.5 10^3/ul (3.5-10.8)
--- NOTE | 2018-06-08 11:02 | ED ---
Lower Extremity - HPI Summary HPI Summary: This patient is a 47 year old M presenting to [facility] accompanied by with a chief complaint of RLE pain since 06/04/18. Pt endorses swelling, pain, cant ambulate or bear weight. [facility] dx him with cellulitis and d /cd him with painkillers, abx, since then sx have worsened. PMHx DM, HLD, HTN. - History of Current Complaint Chief Complaint: EDExtremityLower Stated Complaint: RT FOOT PAIN/SWELLING Time Seen by Provider: 06/08/18 10:32 Hx Obtained From: Patient Mechanism Of Injury: Other - infection Onset of Pain: Days Onset/Duration: Days Severity Initially: Moderate Severity Currently: Severe Pain Intensity: 10 Pain Scale Used: 0-10 Numeric Timing: Constant, Lasting Days Location: Is Discrete @ Character Of Pain: Sharp Associated Signs And Symptoms: Positive: Swelling, Redness, Bruising. Negative : Fever Aggravating Factor(s): Standing, Ambulation, Movement, Weight Bearing Alleviating Factor(s): Nothing Able to Bear Weight: No - Allergies/Home Medications Allergies/Adverse Reactions: Allergies Allergy/AdvReac Type Severity Reaction Status Date / Time No Known Allergies Allergy Verified 06/08/18 10:35 Home Medications: Home Medications DOXYcycline CAP(*) [DOXYcycline 100MG CAP(*)] 100 mg PO BID 06/08/18 [History Confirmed 06/08/18] Fenofibrate(NF) [Tricor(NF)] 145 mg PO DAILY 06/08/18 [History Confirmed ] Insulin GLARGINE(*) [Lantus(*)] 20 units SUBCUT QPM 06/08/18 [History Confirmed 06/08/18] Lisinopril TAB* [Prinivil TAB*] 5 mg PO DAILY 06/08/18 [History Confirmed ] metFORMIN* [Glucophage 1000 MG TAB *] 1,000 mg PO BID 06/08/18 [History Confirmed 06/08/18] traMADol TAB* [Ultram*] 50 mg PO Q6HR PRN 06/08/18 [History Confirmed 06/08/18] PMH/Surg Hx/FS Hx/Imm Hx Endocrine/Hematology History: Reports: Hx Diabetes Cardiovascular History: Reports: Hx Hypercholesterolemia, Hx Hypertension Sensory History: Reports: Hx Contacts or Glasses Denies: Hx Legally Blind, Hx Deafness Opthamlomology History: Reports: Hx Contacts or Glasses Denies: Hx Legally Blind EENT History: Denies: Hx Deafness Infectious Disease History: No Infectious Disease History: Denies: Traveled Outside the [place] in Last 30 Days - Family History Known Family History: Positive: Diabetes - mother - Social History Lives: With Family - Alcohol Use: None Substance Use Type: Reports: None Smoking Status (MU): Former Smoker Review of Systems Negative: Fever Positive: Arthralgia, Myalgia, Decreased ROM, Edema, Other - erythema Positive: Bruising, Other - erythema, swelling All Other Systems Reviewed And Are Negative: Yes Physical Exam - Summary Physical Exam Summary: Appearance: Well appearing, acute pain distress Skin: warm, dry, reflects adequate perfusion, swelling and redness of the right foot, fluctuance of the right 5th toe with tenderness Head/face: normal Eyes: EOMI, BELLA ENT: normal Neck: supple, non-tender Respiratory: CTA, breath sounds present Cardiovascular: RRR, pulses symmetrical Abdomen: non-tender, soft Bowel: present Musculoskeletal: , swelling and redness of the right foot, fluctuance of the right 5th toe with tenderness Neuro: normal, sensory motor intact, A&Ox3, no neurovascular deficit of the right foot. Triage Information Reviewed: Yes Vital Signs On Initial Exam: Initial Vitals Temp Pulse Resp BP Pulse Ox 98.7 F 99 16 130/108 98 06/08/18 09:48 06/08/18 09:48 06/08/18 09:48 06/08/18 09:48 06/08/18 09:48 Vital Signs Reviewed: Yes Diagnostics - Vital Signs Vital Signs Temp Pulse Resp BP Pulse Ox 06/08/18 09:48 98.7 F 99 16 130/108 98 - Laboratory Lab Results: Lab Results 06/08/18 Range/Units 10:31 WBC 9.5 (3.5-10.8) 10^3/ul RBC 5.51 H (4.00-5.40) 10^6/ul Hgb 16.1 (14.0-18.0) g/dl Hct 46 (42-52) % MCV 84 (80-94) fL MCH 29 (27-31) pg MCHC 35 (31-36) g/dl RDW 13 (10.5-15) % Plt Count 198 (150-450) 10^3/ul MPV 8.8 (7.4-10.4) um3 Neut % (Auto) 73.3 (38-83) % Lymph % (Auto) 16.9 L (25-47) % [place] % (Auto) 7.9 H (0-7) % Eos % (Auto) 1.3 (0-6) % Baso % (Auto) 0.6 (0-2) % Absolute Neuts (auto) 7.0 (1.5-7.7) 10^3/ul Absolute Lymphs (auto) 1.6 (1.0-4.8) 10^3/ul Absolute Monos (auto) 0.7 (0-0.8) 10^3/ul Absolute Eos (auto) 0.1 (0-0.6) 10^3/ul Absolute Basos (auto) 0.1 (0-0.2) 10^3/ul Absolute Nucleated RBC 0 10^3/ul Nucleated RBC % 0.1 ESR Pending Result Diagrams: 06/08/18 10:31 06/08/18 10:31 Lab Statement: Any lab studies that have been ordered have been reviewed, and results considered in the medical decision making process. - Radiology RLE XR Xray Interpretation: Positive (See Comments) Radiology Interpretation Completed By: Radiologist - 1. NO ACUTE OSSEOUS INJURY. IF SYMPTOMS PERSIST, RECOMMEND REPEAT IMAGING 2. PLAIN FILM FINDINGS OF OSTEOMYELITIS ARE RELATIVELY LATE FINDINGS. IF THERE IS PERSISTENT CLINICAL CONCERN FOR OSTEOMYELITIS, RECOMMEND CORRELATION WITH FOLLOWUP IMAGING, THREE- PHASE BONE SCANNING, WHITE BLOOD CELL SCAN, AND/OR MRI OF THE AFFECTED REGION. Dr. Mejía has reviewed this report. Lower Extremity Course/Dx - Course Course Of Treatment: A 47-year-old M presents to the ED with a CC of RLE pain and swelling for 4 days. (+) swelling, pain, bruising, redness. (-) ambulation, ability to bear weight. pain worse today. A foot XR shows no osseous injury, and relatively new osteomyelitis. In the ED course, pt was given piperocillin/ tazobactam. - Diagnoses Differential Diagnosis/HQI/PQRI: Positive: Cellulitis, Other - abscess foot/dm Provider Diagnoses: Cellulitis in diabetic foot, Foot abscess, right - Physician Notifications Discussed Care Of Patient With: Vikas Armas Time Discussed With Above Provider: 11:41 Instructed by Provider To: Other - accepted admission Discharge - Sign-Out/Discharge Documenting (check all that apply): Patient Departure - admit - Discharge Plan Condition: Fair Disposition: ADMITTED TO [facility] Referrals: Chucho Yeager MD [Primary Care Provider] - - Billing Disposition and Condition Condition: FAIR Disposition: Admitted to [facility]
[2018-06-08 11:05] LABS: EGFR Non-African American 105.1 (>60)
--- NOTE | 2018-06-08 11:29 | RAD ---
HISTORY: pain, diabetes, infection COMPARISONS: None VIEWS: 3, Frontal, lateral, and oblique views the right foot FINDINGS: BONE DENSITY: Normal. BONES: There is no displaced fracture. There is no appreciable erosion or periosteal reaction. There are calcaneal enthesophytes. JOINTS: There is no arthropathy. ALIGNMENT: There is no dislocation. SOFT TISSUES: There is peripheral arterial opacification. OTHER FINDINGS: None. IMPRESSION: 1. NO ACUTE OSSEOUS INJURY. IF SYMPTOMS PERSIST, RECOMMEND REPEAT IMAGING 2. PLAIN FILM FINDINGS OF OSTEOMYELITIS ARE RELATIVELY LATE FINDINGS. IF THERE IS PERSISTENT CLINICAL CONCERN FOR OSTEOMYELITIS, RECOMMEND CORRELATION WITH FOLLOWUP IMAGING, THREE-PHASE BONE SCANNING, WHITE BLOOD CELL SCAN, AND/OR MRI OF THE AFFECTED REGION.
[2018-06-08] MEDS ORDERED: Morphine VIAL* 4 MG/ML VIAL (1 ml vial) IV ONE (11:50)
[2018-06-08] MEDS ORDERED: Ondansetron INJ* 2 MG/ML VIAL IV ONE (11:51)
[2018-06-08] MEDS ORDERED: Al Hydrox/Mg Hydrox/Simet LIQ* 30 ML UDC PO PRN (13:26)
[2018-06-08] MEDS ORDERED: Acetaminophen TAB* 325 MG PO PRN (13:26)
[2018-06-08] MEDS ORDERED: NS 0.9% 1000 ML* 1,000 ML IV SCH (13:30)
[2018-06-08] MEDS ORDERED: Dextrose 50% Syringe 50 ML* 25 GM/50 ML SYRINGE IV PUSH PRN (13:31)
[2018-06-08] MEDS ORDERED: Vancomycin(*) 1,500 MG in NS 0.9% 250 ML* 250 ML IVPB ONE (14:00)
[2018-06-08] MEDS ORDERED: Gadoteridol* (CONTRAST) 279.3 MG/ML 10 ML IV SCH (14:46)
[2018-06-08] MEDS ORDERED: Piperacillin/Tazobac ADVAN(*) 3.375 GM in NS 0.9% 100 ML* 100 ML IVPB SCH (15:00)
--- NOTE | 2018-06-08 15:57 | RAD ---
Indication: Evaluate for osteomyelitis. Sagittal T1, STIR, coronal T1, STIR, axial T1 and STIR, precontrast coronal T1-weighted fat-suppressed images were obtained. 20 mL of ProHance was injected and postcontrast axial, coronal and sagittal fat-suppressed T1-weighted images were repeated. The entire foot was imaged on this study and therefore detailed evaluation is limited. The Achilles tendon is intact. There is no evidence of abnormal signal. Plantar fascia is unremarkable. There is bone marrow replacement in the proximal phalanx of the fifth digit as well as the distal phalanx of the fifth digit. Associated soft tissue swelling swelling is noted. There is some enhancement of the bone marrow this area after contrast. This is suggestive of osteomyelitis. The remainder of the forefoot and hindfoot are otherwise unremarkable. Diffuse subcutaneous edema is noted. IMPRESSION: There is bone marrow replacement and edema in the proximal phalanx of the fifth digit with enhancement suggestive of osteomyelitis. Associated soft tissue swelling is noted. The remainder of the foot demonstrates no bone marrow edema.
[2018-06-08] MEDS: Enoxaparin(*) 40 MG/0.4 ML SYR SUBCUT SCH (16:03)
[2018-06-08] MEDS: Insulin LISPRO* 1 UNITS UNIT SUBCUT SCH ×2 (17:30→21:08)
[2018-06-08] MEDS ORDERED: Insulin GLARGINE(*) 1 UNITS UNIT SUBCUT SCH (18:00)
[2018-06-08] MEDS: traMADol TAB* 50 MG PO PRN (19:17)
--- NOTE | 2018-06-08 19:57 | HP ---
ADMISSION HISTORY AND PHYSICAL: DATE OF ADMISSION: 06/08/18 CHIEF COMPLAINT: Right foot pain and swelling, failed outpatient cellulitis treatment with doxycycline. HISTORY OF PRESENT ILLNESS: The patient is a 47-year-old gentleman with history of hypertension and diabetes, who presented to [facility] 3 days prior to admission on Wednesday due to right foot pain and swelling where he was diagnosed with cellulitis. He was given prescriptions for doxycycline and he has been taking them for the past 3 days; however, despite taking his antibiotics, he and his felt that his right foot pain and swelling is getting worse and leading him to present to the ED. An x-ray of his foot was done, which reveals no acute osseous injury. However, the patient and the had been given an impression by the ED physician that there might be something wrong with the x-ray of the foot and now concerned about osteomyelitis, which is appropriate given that he is diabetic, microvascular with an elevated CRP of 100.47. I did clarify, however, to the family and the patient that the x-ray did not show any lesion that would be consistent with osteomyelitis and that this will need to be worked up further with and MRI. PAST MEDICAL HISTORY: Diabetes, hypertension, hyperlipidemia. ALLERGIES: NKDA. FAMILY HISTORY: Diabetes in his mother. SOCIAL HISTORY: He has a 6-hlpj-dai-day smoking history for 10 years, but quit 6 years ago. He is , with no children. 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 REVIEW OF SYSTEMS: Increasing right foot pain and swelling as discussed. Denied any headaches, dizziness, fevers, chills, nausea, vomiting, chest pain, shortness of breath, increased cough, no sputum production, abdominal pain, diarrhea, constipation, throat pain, or new skin lesions. The rest of the 14- point review of systems is otherwise unremarkable. PHYSICAL EXAMINATION GENERAL APPEARANCE: The patient is awake, alert, and oriented x3, not in acute distress, although the patient appears to have flushed skin on his face, although his says that this is sometimes normal for him. VITAL SIGNS: Show the most recent vital signs of record with temperature of 99.4 degrees Fahrenheit, 83 beats per minute heart rate, 20 per minute respiratory rate, saturating at 97%, blood pressure of 120/76. HEENT: Normocephalic, atraumatic. PERRLA. Extraocular muscles intact. Negative for icterus. Moist oral mucosa. Negative for throat erythema. NECK: Soft, supple with no cervical lymphadenopathy, no JVD. CHEST: Clear to auscultation bilaterally. Good air entry. No wheezes, rales, or rhonchi. HEART: S1, S2 within normal limits. Regular rate and rhythm. No murmurs, rubs , or gallops. ABDOMEN: Soft, nondistended, nontender. Normoactive bowel sounds x4 quadrants. EXTREMITIES: No cyanosis, clubbing. He does have edema in the right lower extremity about 1 to 2+. He has erythema and warmth of the foot on the lateral side, which is more extensive, somewhat extending beyond the ankle, into the distal right leg. PSYCHIATRIC: No active psychosis, depression, suicidal or homicidal ideation. SKIN: Warm to touch and evidence of edema and erythema and tenderness on the right foot and distal right leg. DIAGNOSTIC STUDIES/LAB DATA: Pertinent laboratory data has been reviewed. The patient does not have a white count. He does have a mild hyponatremia at 132, BUN and creatinine are normal. His lactic acid is 1.6, which is normal. His C- reactive protein, however, is 100.47. As mentioned, the x-ray of the foot did not reveal any acute osseous abnormalities. ASSESSMENT AND PLAN: 1. Right foot cellulitis, failed outpatient therapy: Given failed outpatient therapy, we will place the patient on Zosyn and vancomycin after appropriate cultures have been drawn. We will place the patient on p.r.n. Tylenol for pain and/or fever and we will continue p.r.n. tramadol per his home meds for pain. Given the resistance of his cellulitis and severely elevated CRP, we will rule out osteomyelitis by performing an MRI of the right foot and ankle, which is currently pending at this time. 2. Diabetes mellitus. We will check HbA1c and TSH as an add-on test from labs already sent. We will place the patient on insulin sliding scale and hold off on metformin. 3. Hypertension, now well controlled at 120/76, although previous records in the ED suggest that he may have had a diastolic of 108 and we will continue watchful waiting. We will continue lisinopril at this time. 4. Hyperlipidemia. We will continue fenofibrate and we will check fasting lipid levels in a.m. 5. DVT prophylaxis. We will place the patient on Lovenox at 40 mg subcu daily. 6. Disposition. As above. [id number]/[facility] #: [id number] MTDD
[2018-06-08] MEDS: Docusate CAP* 100 MG PO SCH (21:09)
[2018-06-08] MEDS: Piperacillin/Tazobac ADVAN(*) 3.375 GM in NS 0.9% 100 ML* 100 ML IVPB SCH (21:22)
--- NOTE | 2018-06-09 01:37 | CONS ---
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 He does not recall bleeding or open injury at that time. However, for the last week now he has had increasing pain and swelling and for the last 3 to 4 days, he has had drainage that he has noted on his sock. He is admitted today for presumed bone infection of his right 5th toe with cellulitis, high blood glucose levels, and a positive MRI. PAST MEDICAL HISTORY: Jose has insulin-dependent diabetes, hypertension, and hyperlipidemia SOCIAL HISTORY: He is a 1-pack a day smoker. REVIEW OF SYSTEMS: His review of systems outlined in the chart, basically positive for the right foot pain, swelling, and occasional feeling of fevers and chills. PHYSICAL EXAM: His examination shows him to be a healthy-appearing male, in no acute distress, lying in bed supine. The right foot is uncovered and there is a line drawn around the mid lateral foot to indicate level of cellulitis. There is a transverse 1 cm wound on the plantar aspect of the 4th-5th web space , not currently draining but it is open laceration. The toe itself is erythematous and mildly swollen. The patient does have a warm foot but there is some patchy decreased sensation noted. DIAGNOSTIC STUDIES/LAB DATA: His plain radiograph of the right foot does not show a fracture of the phalanx of the 5th toe, but the MRI does light up in this area with obvious edema of the proximal and distal phalanx. IMPRESSION: This is a 47-year-old gentleman with diabetes, who probably has had a 2-week open injury to the right 5th toe, stubbing it 2 weeks ago and now with 3 to 4 days of pain, swelling, erythema, and altered blood glucose control. He does have an MRI, which is consistent with osteomyelitis of the right 5th toe itself. These findings are shared with Jose and possibility of some bone debridement or possibly toe disarticulation required. We will discuss further with him tomorrow. He is n.p.o. for now. [id number]/[facility] #: [id number] [facility] HEALTHKhadijah
[2018-06-09] MEDS: Vancomycin(*) 1,250 MG in NS 0.9% 250 ML* 250 ML IVPB SCH ×2 (01:51→11:41)
[2018-06-09] MEDS: Piperacillin/Tazobac ADVAN(*) 3.375 GM in NS 0.9% 100 ML* 100 ML IVPB SCH (05:12)
[2018-06-09 07:19] LABS: Hematocrit 41 % (42-52); Hemoglobin 14.4 g/dl (14.0-18.0); Mean Corpuscular HGB Conc 35 g/dl (31-36); Mean Corpuscular Hemoglobin 29 pg (27-31); Mean Corpuscular Volume 83 fL (80-94); Mean Platelet Volume 8.4 um3 (7.4-10.4); Platelet Count 199 10^3/ul (150-450); Red Blood Count 4.91 10^6/ul (4.00-5.40); Red Cell Distribution Width 12 % (10.5-15); White Blood Count 7.6 10^3/ul (3.5-10.8)
[2018-06-09] MEDS ORDERED: PTO:Fenofibrate(NF) 145 MG TAB PO SCH (09:00)
[2018-06-09] MEDS: Insulin LISPRO* 1 UNITS UNIT SUBCUT SCH ×4 (09:06→21:32)
[2018-06-09] MEDS: Lisinopril TAB* 5 MG PO SCH (09:07)
[2018-06-09] MEDS: Docusate CAP* 100 MG PO SCH (09:07)
[2018-06-09 09:48] LABS: INR 1.06 (0.77-1.02)
--- NOTE | 2018-06-09 10:29 | PN ---
Progress Note - Progress Note Date of Service: 06/09/18 SOAP: Subjective: []Patient seen at bedside for infection of right 5th toe and open lesion of webspace 4-5. He denies fever or chills. His right foot is less erythematous and less painful today than it was yesterday. Per patient his last A1C was roughly 10. Objective: []General: Well appearing, NAD RLE: right foot with blotchy erythema spanning to midfoot, receding from line demarcated yesterday. Sensation is intact to light touch throughout the foot, with pain when the 5th digit or open lesion are touched. 5th digit is erythematous and edematous. The webspace between toes 4-5 is with an open 1 cm linear lesion with purulence. This lesion was was packed with saline gauze. Patient is able to wiggle all toes. Capillary refill is less than two seconds distally throughout all digits. DP and PT pulses are 2+. Assessment: []right 5th digit osteomyelitis with open draining lesion of webspace Plan: [] Dr Strauss has offered patient operative vs nonoperative treatment. Patient has elected for nonoperative treatment with the understanding that there is no guarantee of clearing the infection and he may in the future still require amputation. ID consult for IV antibiotics Wound care consult. For now will perform daily saline wet to dry packing until wound care had made recommendations Heel weight bearing RLE Will require ID consult, wound care consult, PICC line, half-way IV antibiotic to attempt to clear infection.
--- NOTE | 2018-06-09 10:38 | PN ---
Subjective Date of Service: 06/09/18 Interval History: Little subj change. He denies pain, also denies numbess in feet. He checks his FS twice a day at home, usually gets over 200. He started Lantu insulin about two weeks ago. Objective Active Medications: Acetaminophen (Tylenol Tab*) 650 mg PO Q4H PRN PRN Reason: FEVER/PAIN Al Hydrox/Mg Hydrox/Simethicone (Maalox Plus*) 30 ml PO Q6H PRN PRN Reason: INDIGESTION Dextrose (D50w Syringe 50 Ml*) 12.5 gm IV PUSH .FOR FS < 60 - SS PRN PRN Reason: FS < 60 Enoxaparin Sodium (Lovenox(*)) 40 mg SUBCUT Q24H [facility] Last Admin: 06/08/18 16:03 Dose: Not Given Fenofibrate (Tricor(Nf)) 145 mg PO DAILY [facility]; Protocol Gadoteridol (Prohance* (Contrast)) 20 ml IV ONCE [facility] Stop: 06/10/18 14:45 Last Admin: 06/08/18 15:19 Dose: 20 ml Vancomycin HCl 1,250 mg/ (Sodium Chloride) 250 mls @ 166.667 mls/hr IVPB Q8H [facility] Last Admin: 06/09/18 01:51 Dose: 166.667 mls/hr Piperacillin Sod/Tazobactam (Sod 3.375 gm/ Sodium Chloride) 100 mls @ 25 mls/ hr IVPB 0530,1330,2130 [facility] Last Admin: 06/09/18 05:12 Dose: 25 mls/hr Insulin Glargine (Lantus(*)) 28 units SUBCUT QPM [facility] Insulin Human Lispro (Humalog*) 0 units SUBCUT ACHS [facility]; Protocol Last Admin: 06/09/18 09:06 Dose: 3 unit Lisinopril (Prinivil Tab*) 5 mg PO DAILY [facility] Last Admin: 06/09/18 09:07 Dose: 5 mg Pharmacy Profile Note (Vancomycin Trough Check) 1 note FOLLOW UP 1530 ONE Stop: 06/09/18 15:31 Tramadol HCl (Ultram*) 50 mg PO Q6HR PRN PRN Reason: PAIN Last Admin: 06/08/18 19:17 Dose: 50 mg Vital Signs - 8 hr 06/09/18 03:39 Temperature 98.0 F Pulse Rate 73 Respiratory 18 Rate Blood Pressure 115/76 (mmHg) O2 Sat by Pulse 98 Oximetry Oxygen Devices in Use Now: None Respiratory: Symmetrical Chest Expansion and Respiratory Effort, Clear to Auscultation, Clear to Percussion Cardiovascular: NL Sounds; No Murmurs; No JVD, RRR, No Edema, - Extremities: No Edema, No Clubbing, Cyanosis, - - R foot bandaged Skin: No Nodules or Sclerosis, - - Open wound plantar surfacr R foot webspace R 4-5 toes. Neurological: NL Sensation Result Diagrams: 06/09/18 06:38 06/09/18 06:38 Additional Lab and Data: Lab Results 06/08/18 Range/Units 10:31 WBC 9.5 (3.5-10.8) 10^3/ul RBC 5.51 H (4.00-5.40) 10^6/ul Hgb 16.1 (14.0-18.0) g/dl Hct 46 (42-52) % MCV 84 (80-94) fL MCH 29 (27-31) pg MCHC 35 (31-36) g/dl RDW 13 (10.5-15) % Plt Count 198 (150-450) 10^3/ul MPV 8.8 (7.4-10.4) um3 Neut % (Auto) 73.3 (38-83) % Lymph % (Auto) 16.9 L (25-47) % [place] % (Auto) 7.9 H (0-7) % Eos % (Auto) 1.3 (0-6) % Baso % (Auto) 0.6 (0-2) % Absolute Neuts (auto) 7.0 (1.5-7.7) 10^3/ul Absolute Lymphs (auto) 1.6 (1.0-4.8) 10^3/ul Absolute Monos (auto) 0.7 (0-0.8) 10^3/ul Absolute Eos (auto) 0.1 (0-0.6) 10^3/ul Absolute Basos (auto) 0.1 (0-0.2) 10^3/ul Absolute Nucleated RBC 0 10^3/ul Nucleated RBC % 0.1 ESR Pending Microbiology and Other Data: Microbiology 06/08/18 10:10 Skin and Soft Tissue MRSA/MSSA (PCR - Final Toe - Right Mrsa Negative S.aureus Negative Gram Stain - Final Assess/Plan/Problems-Billing Assessment: - Patient Problems (1) Osteomyelitis Current Visit: Yes Status: Acute Code(s): M86.9 - OSTEOMYELITIS, UNSPECIFIED SNOMED Code(s): 05644826 Comment: R fith toe with open wound. Change to cefepime and vanco, consider linezolid as outpt to reduce number of doses. Mid-line requested. (2) HTN (hypertension) Current Visit: Yes Status: Acute Code(s): I10 - ESSENTIAL (PRIMARY) HYPERTENSION SNOMED Code(s): 45726533 Comment: Continue home dose lisinopril. (3) Diabetes Current Visit: Yes Status: Acute Code(s): E11.9 - TYPE 2 DIABETES MELLITUS WITHOUT COMPLICATIONS SNOMED Code(s): 70269213 Comment: Continue Lantus, SS Lispro, hold metformin.
[2018-06-09] MEDS: traMADol TAB* 50 MG PO PRN (12:05)
--- NOTE | 2018-06-09 12:22 | RAD ---
INDICATIONS: infected right 5th digit, diabetes, hypertension, hyperlipidemia, left claudication, right vascular ulcers, right skin changes COMPARISONS: None TECHNIQUE: Ankle-brachial indices and Doppler tracings were obtained of the lower extremities bilaterally. FINDINGS: Right: The posterior tibial ankle brachial index is 1.37. The dorsalis pedis ankle brachial index is 1.26. The digital brachial index is 0.94 The posterior tibial waveform is triphasic. The dorsalis pedis waveform is triphasic. Left: The posterior tibial ankle brachial index is 1.31. The dorsalis pedis ankle brachial index is 1.29. The digital brachial index is 0.91 The posterior tibial waveform is triphasic. The dorsalis pedis waveform is triphasic. OTHER: None. IMPRESSION: 1. THERE IS ELEVATION OF THE ANKLE-BRACHIAL INDICES SUGGESTIVE OF DECREASED COMPLIANCE IN THE SETTING ARTERIOSCLEROSIS. THIS MAY ARTIFACTUALLY MASK PERIPHERAL ARTERIAL OCCLUSIVE DISEASE. 2. THE DISTAL WAVEFORMS ARE NORMAL.
--- NOTE | 2018-06-09 12:47 | PN ---
Progress Note - Progress Note Date of Service: 06/09/18 Note: I saw Jose this morning. He has osteomyelitis of his right fifth toe. The cellulitis has improved. There is an ulcer in the web space. He has strong palpable pulses to the foot. His glucose control has not been very good recently. We discussed options for this toe. We discussed antibiotics and wound care versus toe amputation. He expressed a strong desire to avoid amputation if possible. Therefore, we will move forward with antibiotics and wound care. I recommend an infectious disease consult. I recommend a wound care consult. I packed his wound with a saline wet-to-dry dressing today. I had a long discussion with him and his about the importance of proper diabetic foot care. Jose Strauss MD
[2018-06-09] MEDS: Enoxaparin(*) 40 MG/0.4 ML SYR SUBCUT SCH (13:25)
[2018-06-09] MEDS: Cefepime 1 GM in Dextrose(*) 1 GM/50 ML BAG IV SCH (15:01)
[2018-06-09] MEDS ORDERED: Vancomycin Trough Check NOTE FOLLOW UP ONE (15:30)
[2018-06-09] MEDS: Vancomycin(*) 1,500 MG in NS 0.9% 250 ML* 250 ML IVPB SCH (16:53)
[2018-06-09] MEDS ORDERED: Pneumococcal *Vac Polyvalent 0.5 ML VIAL IM ONE (18:00)
[2018-06-09] MEDS: Insulin GLARGINE(*) 1 UNITS UNIT SUBCUT SCH (18:39)
[2018-06-10] MEDS: Vancomycin(*) 1,500 MG in NS 0.9% 250 ML* 250 ML IVPB SCH ×4 (00:03→23:56)
[2018-06-10] MEDS: Cefepime 1 GM in Dextrose(*) 1 GM/50 ML BAG IV SCH ×2 (01:53→13:58)
[2018-06-10] MEDS: PTO:Fenofibrate(NF) 145 MG TAB PO SCH (08:25)
[2018-06-10] MEDS: Lisinopril TAB* 5 MG PO SCH (08:25)
[2018-06-10] MEDS: Insulin LISPRO* 1 UNITS UNIT SUBCUT SCH ×4 (08:26→20:55)
--- NOTE | 2018-06-10 09:35 | PN ---
Progress Note - Progress Note Date of Service: 06/10/18 SOAP: Subjective: []Patient seen sitting up in bed for infection of right 5th toe and open lesion of webspace 4-5. He denies fever or chills. He states that his pain is much better today than it was the other day. Denies any chest pain, SOB, nausea or vomiting. Wound care had seen the pt yesterday changed his dressing and recommended silver alginate to be placed between toes. Discussed offloading when he is up and about. Consider Hyperbaric Oxygen Therapy (HBOT) after his discharge in an effort to save his toe. Objective: []General: Well appearing, NAD RLE: Dressing is clean, dry and intact. Patient is able to wiggle all toes. Capillary refill is less than two seconds distally throughout all digits. DP and PT pulses are 2+. calf is soft and non tender Vital Signs Temp 98.6 F 06/10/18 07:34 Pulse 78 06/10/18 07:34 Resp 18 06/10/18 07:38 BP 111/69 06/10/18 07:34 Pulse Ox 99 06/10/18 07:34 Intake & Output 06/09/18 06/10/18 06/10/18 18:59 06:59 18:59 Intake Total 1200 1309 Balance 1200 1309 Intake: IV Fluids 1249 ABX - VANCOMYCIN 250 NS (0.9%) 999 IVPB 60 ABX - CEFEPIME 60 Oral 1200 Other: # Bowel Movements 1 0 # Voids 2 0 Assessment: right 5th digit osteomyelitis with open draining lesion of webspace Plan: Will continue non operative management. Wound care recommendations to be followed Heel weight bearing RLE Will require ID consult, wound care consult, PICC line, senior living IV antibiotic to attempt to clear infection.
--- NOTE | 2018-06-10 12:04 | PN ---
Subjective Date of Service: 06/10/18 Interval History: Patient was seen and examined at bedside. Reports feeling well, denies any complaints. Seen by orthopedics earlier, dressing was changed. Ambulate well, denies any pain, fever or chills. Wound consult was done yesterday, patient tells me there was some consideration for hyperbaric oxygen therapy if he qualifies. His POC glucose checks are improving with Lantus and sliding scale on board. Family History: Unchanged from Admission Social History: Unchanged from Admission Past Medical History: Unchanged from Admission Objective Active Medications: Acetaminophen (Tylenol Tab*) 650 mg PO Q4H PRN PRN Reason: FEVER/PAIN Al Hydrox/Mg Hydrox/Simethicone (Maalox Plus*) 30 ml PO Q6H PRN PRN Reason: INDIGESTION Dextrose (D50w Syringe 50 Ml*) 12.5 gm IV PUSH .FOR FS < 60 - SS PRN PRN Reason: FS < 60 Enoxaparin Sodium (Lovenox(*)) 40 mg SUBCUT Q24H [facility] Last Admin: 06/09/18 13:25 Dose: 40 mg Fenofibrate (Tricor(Nf)) 145 mg PO DAILY [facility]; Protocol Last Admin: 06/10/18 08:25 Dose: 145 mg Gadoteridol (Prohance* (Contrast)) 20 ml IV ONCE [facility] Stop: 06/10/18 14:45 Last Admin: 06/08/18 15:19 Dose: 20 ml Cefepime HCl (Maxipime 1 Gm In Dextrose Duplex (*)) 1 gm in 50 mls @ 100 mls/ hr IV Q12H [facility] Last Admin: 06/10/18 01:53 Dose: 100 mls/hr Vancomycin HCl 1,500 mg/ (Sodium Chloride) 250 mls @ 166.667 mls/hr IVPB 0000, 0800,1600 [facility] Last Admin: 06/10/18 08:38 Dose: 166.667 mls/hr Insulin Glargine (Lantus(*)) 28 units SUBCUT QPM [facility] Last Admin: 06/09/18 18:39 Dose: 28 unit Insulin Human Lispro (Humalog*) 0 units SUBCUT ACHS [facility]; Protocol Last Admin: 06/10/18 08:26 Dose: 3 unit Lisinopril (Prinivil Tab*) 5 mg PO DAILY [facility] Last Admin: 06/10/18 08:25 Dose: 5 mg Pharmacy Profile Note (Vancomycin Trough Check) 1 note FOLLOW UP 1600 ONE Stop: 06/10/18 16:01 Tramadol HCl (Ultram*) 50 mg PO Q6HR PRN PRN Reason: PAIN Last Admin: 06/09/18 12:05 Dose: 50 mg Vital Signs - 8 hr 06/10/18 06/10/18 07:34 07:38 Temperature 98.6 F Pulse Rate 78 Respiratory 18 18 Rate Blood Pressure 111/69 (mmHg) O2 Sat by Pulse 99 Oximetry Oxygen Devices in Use Now: None Appearance: Appears comfortable and in NAD Eyes: No Scleral Icterus, PERRLA Ears/Nose/Mouth/Throat: Clear Oropharnyx, Mucous Membranes Moist Neck: NL Appearance and Movements; NL JVP, Trachea Midline Respiratory: Symmetrical Chest Expansion and Respiratory Effort, Clear to Auscultation Cardiovascular: NL Sounds; No Murmurs; No JVD, RRR Abdominal: NL Sounds; No Tenderness; No Distention Extremities: No Edema, No Clubbing, Cyanosis, - - Right foot with clean, dry and intact dressing in place. Exam deferred to ortho team. Skin: No Rash or Ulcers Neurological: Alert and Oriented x 3, NL Sensation, NL Muscle Strength and Tone Nutrition: Taking PO's Result Diagrams: 06/09/18 06:38 06/09/18 06:38 Additional Lab and Data: Lab Results Microbiology and Other Data: Microbiology 06/08/18 10:10 Skin and Soft Tissue MRSA/MSSA (PCR - Final Toe - Right Mrsa Negative S.aureus Negative Gram Stain - Final Assess/Plan/Problems-Billing Assessment: A 47 y/o male with PMH of HTN, insulin-dependent DM, who was found to have R foot osteomylitis, being treated medically, likely to be discharge with PICC line for IV antibiotics as outpatient. - Patient Problems (1) Diabetes Current Visit: Yes Status: Acute Comment: - Continue Lantus, SS Lispro, hold metformin. - Appears to be controlled at this time, will offer diabetes eduacation as outpatient. (2) HTN (hypertension) Current Visit: Yes Status: Acute Comment: - Continue home dose lisinopril. (3) Osteomyelitis Current Visit: Yes Status: Acute Comment: - Right fifth toe with open wound. Dressing changes per orthopedic team. - Change to cefepime and vanco, consider linezolid as outpt to reduce number of doses. Mid-line requested. - Appreciate wound consult, may consider hyperparic chamber therapy as outpatient. - Await PICC line placement (4) DVT prophylaxis Current Visit: Yes Status: Acute Comment: - On Lovenox (5) Full code status Current Visit: Yes Status: Acute Status and Disposition: Inpatient. Anticipate discharge when medically stable.
[2018-06-10] MEDS: Enoxaparin(*) 40 MG/0.4 ML SYR SUBCUT SCH (13:55)
[2018-06-10] MEDS ORDERED: Vancomycin Trough Check NOTE FOLLOW UP ONE (16:00)
[2018-06-10] MEDS: Insulin GLARGINE(*) 1 UNITS UNIT SUBCUT SCH (18:08)
[2018-06-10] MEDS: metroNIDAZOLE IV 500 MG/100ML* 500 MG/100 ML BAG IVPB SCH (18:34)
[2018-06-10] MEDS: cefTRIAXone* 1 GM in NS 0.9% 50 ML BAG IVPB SCH (20:55)
[2018-06-10] MEDS: traMADol TAB* 50 MG PO PRN (23:55)
[2018-06-11] MEDS: metroNIDAZOLE IV 500 MG/100ML* 500 MG/100 ML BAG IVPB SCH ×3 (02:00→17:56)
[2018-06-11 05:55] LABS: ABS Basophils 0.1 10^3/ul (0-0.2); ABS Eosinophils 0.2 10^3/ul (0-0.6); ABS Lymphocytes 1.8 10^3/ul (1.0-4.8); ABS Monocytes 0.8 10^3/ul (0-0.8); ABS Neutrophils 5.1 10^3/ul (1.5-7.7); ABS Nucleated RBC 0 10^3/ul; Eosinophil % 2.5 % (0-6); Hematocrit 38 % (42-52); Hemoglobin 13.3 g/dl (14.0-18.0); Lymphocyte % 22.3 % (25-47); Mean Corpuscular HGB Conc 35 g/dl (31-36); Mean Corpuscular Hemoglobin 29 pg (27-31); Mean Corpuscular Volume 83 fL (80-94); Nucleated Red Blood Cells % 0.1; Platelet Count 219 10^3/ul (150-450); Red Blood Count 4.59 10^6/ul (4.00-5.40); Red Cell Distribution Width 13 % (10.5-15); White Blood Count 7.9 10^3/ul (3.5-10.8)
[2018-06-11] MEDS: PTO:Fenofibrate(NF) 145 MG TAB PO SCH (08:41)
[2018-06-11] MEDS: Insulin LISPRO* 1 UNITS UNIT SUBCUT SCH ×4 (08:41→20:27)
[2018-06-11] MEDS: Lisinopril TAB* 5 MG PO SCH (08:41)
--- NOTE | 2018-06-11 10:28 | PN ---
Progress Note - Progress Note Date of Service: 06/11/18 Note: I saw Jose this morning. He is feeling well. He thinks the toes improve and I agree. There is less swelling and erythema. The wound looks a little better. There is no erythema tracking proximally. He is tolerating the antibiotics well. We will continue nonoperative treatment. Continue antibiotics. Continue daily wound care. continue good glucose control. Jose Strauss MD
[2018-06-11] MEDS: Enoxaparin(*) 40 MG/0.4 ML SYR SUBCUT SCH (12:30)
--- NOTE | 2018-06-11 16:09 | PN ---
Subjective Date of Service: 06/11/18 Interval History: Pt feels well. Denies pain Family History: Unchanged from Admission Social History: Unchanged from Admission Past Medical History: Unchanged from Admission Objective Active Medications: Acetaminophen (Tylenol Tab*) 650 mg PO Q4H PRN PRN Reason: FEVER/PAIN Al Hydrox/Mg Hydrox/Simethicone (Maalox Plus*) 30 ml PO Q6H PRN PRN Reason: INDIGESTION Dextrose (D50w Syringe 50 Ml*) 12.5 gm IV PUSH .FOR FS < 60 - SS PRN PRN Reason: FS < 60 Enoxaparin Sodium (Lovenox(*)) 40 mg SUBCUT Q24H [facility] Last Admin: 06/11/18 12:30 Dose: 40 mg Fenofibrate (Tricor(Nf)) 145 mg PO DAILY [facility]; Protocol Last Admin: 06/11/18 08:41 Dose: 145 mg Heparin Sodium (Porcine) (Heparin Flush Picc/Ml/Cvc(*)) 1 ml FLUSH 0600,1800 [facility]; Protocol Metronidazole/Sodium Chloride (Flagyl 500 Mg Ivpb*) 500 mg in 100 mls @ 100 mls /hr IVPB Q8H [facility] Last Admin: 06/11/18 10:30 Dose: 100 mls/hr Ceftriaxone Sodium 1 gm/ (Sodium Chloride) 50 mls @ 200 mls/hr IVPB Q24H [facility] Last Admin: 06/10/18 20:55 Dose: 200 mls/hr Insulin Glargine (Lantus(*)) 28 units SUBCUT QPM [facility] Last Admin: 06/10/18 18:08 Dose: 28 unit Insulin Human Lispro (Humalog*) 0 units SUBCUT ACHS [facility]; Protocol Last Admin: 06/11/18 12:30 Dose: 6 unit Lisinopril (Prinivil Tab*) 5 mg PO DAILY [facility] Last Admin: 06/11/18 08:41 Dose: 5 mg Tramadol HCl (Ultram*) 50 mg PO Q6HR PRN PRN Reason: PAIN Last Admin: 06/10/18 23:55 Dose: 50 mg Vital Signs - 8 hr 06/11/18 06/11/18 11:37 15:25 Temperature 98.2 F 98.0 F Pulse Rate 69 73 Respiratory 16 16 Rate Blood Pressure 118/69 119/68 (mmHg) O2 Sat by Pulse 98 100 Oximetry Oxygen Devices in Use Now: None Appearance: 47 yo m in nAD, aAOx3 Eyes: No Scleral Icterus, PERRLA Ears/Nose/Mouth/Throat: NL Teeth, Lips, Gums, Mucous Membranes Moist Neck: NL Appearance and Movements; NL JVP, Trachea Midline Respiratory: Symmetrical Chest Expansion and Respiratory Effort, Clear to Auscultation Cardiovascular: NL Sounds; No Murmurs; No JVD Abdominal: NL Sounds; No Tenderness; No Distention, No Hepatosplenomegaly Lymphatic: No Cervical Adenopathy Extremities: No Edema, No Clubbing, Cyanosis Skin: No Nodules or Sclerosis, - - R fifth toe base fissure like wound at approx 1 cm deep 1.5 sm in width, not draining, no cellulitis Neurological: Alert and Oriented x 3, NL Muscle Strength and Tone Result Diagrams: 06/11/18 05:35 06/11/18 05:35 Additional Lab and Data: Lab Results Microbiology and Other Data: Microbiology 06/08/18 10:10 Skin and Soft Tissue MRSA/MSSA (PCR - Final Toe - Right Mrsa Negative S.aureus Negative Gram Stain - Final Assess/Plan/Problems-Billing Assessment: A 47 y/o male with PMH of HTN, insulin-dependent DM, who was found to have R foot osteomylitis, being treated medically, likely to be discharge with PICC line for IV antibiotics as outpatient. - Patient Problems (1) Osteomyelitis Comment: - Right fifth toe with open wound. Dressing changes per orthopedic team. -cont Ceftriaxone/flagyl, d/c Vanc - Appreciate wound consult, may consider hyperparic chamber therapy as outpatient. - PICC line placed (2) Diabetes Comment: - Continue Lantus, SS Lispro, restarting metformin. - Appears to be controlled at this time -Hb A1C 11.2 (3) HTN (hypertension) Comment: - Continue home dose lisinopril. (4) DVT prophylaxis Comment: - On Lovenox Status and Disposition: Inpatient. d/c on Wednesday day after ID consult and IV antibiotics are arranged
[2018-06-11] MEDS: Insulin GLARGINE(*) 1 UNITS UNIT SUBCUT SCH (18:01)
[2018-06-11] MEDS: traMADol TAB* 50 MG PO PRN (18:09)
[2018-06-11] MEDS: metFORMIN* 1,000 MG TAB PO SCH (20:27)
[2018-06-11] MEDS: cefTRIAXone* 1 GM in NS 0.9% 50 ML BAG IVPB SCH (20:27)
[2018-06-12] MEDS: metroNIDAZOLE IV 500 MG/100ML* 500 MG/100 ML BAG IVPB SCH ×3 (03:31→18:07)
[2018-06-12] MEDS: metFORMIN* 1,000 MG TAB PO SCH ×2 (08:58→21:35)
[2018-06-12] MEDS: PTO:Fenofibrate(NF) 145 MG TAB PO SCH (08:58)
[2018-06-12] MEDS: Lisinopril TAB* 5 MG PO SCH (08:58)
[2018-06-12] MEDS: Insulin LISPRO* 1 UNITS UNIT SUBCUT SCH ×4 (08:59→21:47)
--- NOTE | 2018-06-12 11:18 | PN ---
Subjective Date of Service: 06/12/18 Interval History: Pt feels well. R 5th toe is not painful. Family History: Unchanged from Admission Social History: Unchanged from Admission Past Medical History: Unchanged from Admission Objective Active Medications: Acetaminophen (Tylenol Tab*) 650 mg PO Q4H PRN PRN Reason: FEVER/PAIN Al Hydrox/Mg Hydrox/Simethicone (Maalox Plus*) 30 ml PO Q6H PRN PRN Reason: INDIGESTION Dextrose (D50w Syringe 50 Ml*) 12.5 gm IV PUSH .FOR FS < 60 - SS PRN PRN Reason: FS < 60 Enoxaparin Sodium (Lovenox(*)) 40 mg SUBCUT Q24H [facility] Last Admin: 06/11/18 12:30 Dose: 40 mg Fenofibrate (Tricor(Nf)) 145 mg PO DAILY [facility]; Protocol Last Admin: 06/12/18 08:58 Dose: 145 mg Heparin Sodium (Porcine) (Heparin Flush Picc/Ml/Cvc(*)) 1 ml FLUSH 0600,1800 [facility]; Protocol Last Admin: 06/12/18 06:16 Dose: 1 ml Metronidazole/Sodium Chloride (Flagyl 500 Mg Ivpb*) 500 mg in 100 mls @ 100 mls /hr IVPB Q8H [facility] Last Admin: 06/12/18 10:34 Dose: 100 mls/hr Ceftriaxone Sodium 1 gm/ (Sodium Chloride) 50 mls @ 200 mls/hr IVPB Q24H [facility] Last Admin: 06/11/18 20:27 Dose: 200 mls/hr Insulin Glargine (Lantus(*)) 32 units SUBCUT QPM [facility] Insulin Human Lispro (Humalog*) 0 units SUBCUT ACHS [facility]; Protocol Last Admin: 06/12/18 08:59 Dose: 3 unit Lisinopril (Prinivil Tab*) 5 mg PO DAILY [facility] Last Admin: 06/12/18 08:58 Dose: 5 mg Metformin HCl (Glucophage*) 1,000 mg PO BID [facility] Last Admin: 06/12/18 08:58 Dose: 1,000 mg Tramadol HCl (Ultram*) 50 mg PO Q6HR PRN PRN Reason: PAIN Last Admin: 06/11/18 18:09 Dose: 50 mg Vital Signs - 8 hr 06/12/18 06/12/18 08:00 08:09 Temperature 98.2 F Pulse Rate 73 Respiratory 18 18 Rate Blood Pressure 122/73 (mmHg) O2 Sat by Pulse 98 Oximetry Oxygen Devices in Use Now: None Appearance: 47 yo M in nAD, aAOx3 Eyes: No Scleral Icterus, PERRLA Ears/Nose/Mouth/Throat: NL Teeth, Lips, Gums, Mucous Membranes Moist Neck: NL Appearance and Movements; NL JVP, Trachea Midline Respiratory: Symmetrical Chest Expansion and Respiratory Effort, Clear to Auscultation Cardiovascular: NL Sounds; No Murmurs; No JVD, No Edema Abdominal: NL Sounds; No Tenderness; No Distention Lymphatic: No Cervical Adenopathy Extremities: No Edema, No Clubbing, Cyanosis Skin: No Nodules or Sclerosis, - - R fifth toe wound unchanged Neurological: Alert and Oriented x 3, NL Muscle Strength and Tone Result Diagrams: 06/11/18 05:35 06/11/18 05:35 Additional Lab and Data: Lab Results Microbiology and Other Data: Microbiology 06/08/18 10:10 Skin and Soft Tissue MRSA/MSSA (PCR - Final Toe - Right Mrsa Negative S.aureus Negative Gram Stain - Final Assess/Plan/Problems-Billing Assessment: A 47 y/o male with PMH of HTN, insulin-dependent DM, who was found to have R foot osteomylitis, being treated medically, likely to be discharge with PICC line for IV antibiotics as outpatient. - Patient Problems (1) Osteomyelitis Comment: - Right fifth toe with open wound. Dressing changes per orthopedic team. -cont Ceftriaxone/flagyl - Appreciate wound consult, may consider hyperparic chamber therapy as outpatient. - PICC line placed (2) Diabetes Comment: - Continue Lantus, SS Lispro, restarting metformin. - Appears to be controlled at this time -Hb A1C 11.2 (3) HTN (hypertension) Comment: - Continue home dose lisinopril. (4) DVT prophylaxis Comment: - On Lovenox Status and Disposition: Inpatient. d/c on Wednesday after ID consult and IV antibiotics are arranged
[2018-06-12] MEDS: Enoxaparin(*) 40 MG/0.4 ML SYR SUBCUT SCH (12:36)
[2018-06-12] MEDS ORDERED: Insulin GLARGINE(*) 1 UNITS UNIT SUBCUT SCH (18:00)
[2018-06-12] MEDS ORDERED: oxyCODONE TAB* 5 MG TAB PO PRN (21:11)
[2018-06-12] MEDS ORDERED: oxyCODONE TAB* 5 MG TAB ONE (21:28)
[2018-06-12] MEDS: cefTRIAXone* 1 GM in NS 0.9% 50 ML BAG IVPB SCH (21:34)
[2018-06-13] MEDS: metroNIDAZOLE IV 500 MG/100ML* 500 MG/100 ML BAG IVPB SCH ×2 (02:29→08:56)
[2018-06-13] MEDS: Lisinopril TAB* 5 MG PO SCH (08:55)
[2018-06-13] MEDS: metFORMIN* 1,000 MG TAB PO SCH (08:55)
[2018-06-13] MEDS: PTO:Fenofibrate(NF) 145 MG TAB PO SCH (08:55)
[2018-06-13] MEDS: Insulin LISPRO* 1 UNITS UNIT SUBCUT SCH ×2 (08:56→12:05)
[2018-06-13 12:06] VITALS: BP 117/68
--- NOTE | 2018-06-13 12:13 | PN ---
Progress Note - Progress Note Date of Service: 06/13/18 SOAP: Subjective: []Patient seen at bedside, he will be discharged today. Denies fever, chills, right foot pain. Objective: []General: Well appearing, NAD RLE: No erythema of 5th toe or of right foot, no erythema streaking proximally. Wound is without drainage. Sensation intact to light touch distally. Assessment: [] Right 5th toe wound, osteomyelitis Plan: []Continue nonoperative treatment Heel WB, hard sole shoe Wound care: Silver alginate, apply between 4th and 5th toes daily. Then wrap in a frantz. Attend wound clinic, first appt Follow up with Dr Strauss within 1 week. Call right away for increased redness , pain, drainage, fever or other concerns. Daily antibiotic infusions
--- NOTE | 2018-06-13 13:59 | CONS ---
CONSULTATION REPORT: DATE OF CONSULT: 06/13/18 REQUESTING PHYSICIAN: Dr. Mirella Velasquez. CONSULTING SERVICE: Infectious Disease. REASON FOR CONSULT: Right fifth toe osteomyelitis. IMPRESSION: 1. Acute nonhematogenous right fifth toe osteomyelitis with associated cellulitis and infective myositis. 2. Diabetes with peripheral neuropathy. 3. Arteriosclerosis. RECOMMENDATIONS: Agree with ceftriaxone, will increase to 2 g a day, which he will have for a 6 weeks total and Flagyl 500 mg by mouth twice a day for 2 weeks with weekly CBC, CMP, CRP, and follow up with me in 1 to 2 weeks. We discussed possible side effects including fever, rash, or diarrhea. He will call and notify me if any of those. HISTORY OF PRESENT ILLNESS: This is a 47-year-old diabetic man, admitted with right foot infection that came on suddenly last week when he first noticed some redness and pain in his right toe, which progressed to severe pain, progressive swelling through the forefoot and midfoot. He was seen first at [facility] where he was given a prescription for doxycycline, which he had taken, but had progression of his symptoms despite that. He came to the emergency room on . He has had MRI with the findings noted above. He is here on ceftriaxone and Flagyl. There is a wound between the fourth and fifth toes and at the base of the fifth toe. The cultures growing group B strep, Peptoniphilus and Peptostreptococcus and normal david. He has had no fevers, chills, or sweats while he has been here. His appetite is improving. The pain and redness and swelling of the foot are much improved. Still some redness and swelling in the forefoot and fifth toe. He met with Orthopedics. He opted for antibiotics alone. PAST MEDICAL HISTORY: 1. Type 2 diabetes with peripheral neuropathy. 2. Hypertension. 3. Hyperlipidemia. MEDICATIONS: 1. Tylenol. 2. Ceftriaxone 1 g a day. 3. Enoxaparin. 4. Fenofibrate. 5. Heparin flush to the PICC line. 6. Insulin glargine. 7. Lisinopril. 8. Metformin. 9. Flagyl 500 mg IV every 8 hours. 10. Tramadol as needed. ALLERGIES: No known drug allergies. FAMILY HISTORY: No recurrent infections or tuberculosis. SOCIAL HISTORY: He lives in [place] with his . He works at [employer]. No travel. REVIEW OF SYSTEMS: All negative to 14-point review of systems, except as noted above in the history of present illness. PHYSICAL EXAM: Vital Signs: Temperature 37, heart rate 80, respiratory rate 18 , blood pressure 117/68, O2 sat 99% on room air. General: He is awake, not in distress. Neurologic: He is oriented x3. Follows all commands. Sensation is decreased to light touch in both feet. HEENT: There is no thrush. Neck: Supple without mass. Lymph Nodes: There is no cervical, supraclavicular, inguinal, axillary, or epitrochlear lymphadenopathy. Heart is regular rate and rhythm without murmurs, rubs, or gallops. Lungs: Clear to auscultation bilaterally. Abdomen: Soft, nontender, and nondistended. There are bowel sounds present. Skin: There are no rash or splinter hemorrhage. Musculoskeletal: There is right lateral forefoot diffuse edema without crepitus or fluctuance. Fifth toe is edematous. There is a linear ulcer between fourth and fifth toes with some maceration. LABORATORY DATA: White blood cell count 7.9, hemoglobin 13.3, platelets 219. Creatinine 0.7. ALT is 8. CRP on admission was 100. Please see impressions and recommendations as outlined above, which I have discussed with Dr. Velasquez. Thanks for asking me to see Mr. Nguyen in consultation. [id number] #: [id number] [id number]
--- NOTE | 2018-06-14 03:02 | DS ---
CC: Dr. Yeager; Dr. Petty; Dr. Jose Strauss; Dr. Jameson; [facility] * DISCHARGE SUMMARY: DATE OF ADMISSION: 06/08/18 DATE OF DISCHARGE: 06/13/18 PRIMARY CARE PROVIDER: Dr. Yeager. DISCHARGE DIAGNOSIS: Acute osteomyelitis of the right fifth toe. SECONDARY DIAGNOSES: 1. Diabetes. 2. Hypertension. 3. Hyperlipidemia. MEDICATIONS AT DISCHARGE: Include: 1. TriCor 145 mg daily. 2. Prinivil 5 mg daily. 3. Metformin 1000 mg b.i.d. 4. Tramadol 50 mg every 6 hours p.r.n. 5. Ceftriaxone IV 2 g every 24 hours for 37 days total. 6. Insulin glargine 32 units subcutaneous daily. 7. Metronidazole mg b.i.d. for 2 weeks total. FOLLOWUP: At discharge, the patient is recommended with the below followups. The patient is to present to infusion center on 06/14/18 at 1:30 p.m. for his next infusion of ceftriaxone. He is planning to have his daily infusions at the infusion center at [facility]. The patient is going to follow up with the [facility] on 06/16/18 at 9:30 a.m. for a followup. The patient is asked to call Dr. Strauss's office to schedule a followup appointment early next week. At this time, the patient is also recommended to call Dr. Petty's office to schedule an appointment for a followup in 1 to 2 weeks. The patient is also recommended to follow up with his primary care provider in 4 to 7 days. DIET: Diabetic. AMBULATION: Heel weightbearing in hard sole shoe. LABORATORY DATA AND STUDIES PERFORMED DURING THE HOSPITAL STAY: Included: On 06/11/18, white blood cell count 7.9, hemoglobin of 13.3, hematocrit of 38, and platelets of 219. Sodium of 137, potassium 3.7, chloride 104, carbon dioxide 25 , BUN 9, creatinine 0.68. 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 The next bacteria is Peptostreptococcus anaerobius as well as streptococcus agalactiae group B. Blood cultures were negative to date. Lower extremity arterial Dopplers performed on 06/09/18, impression: "There is elevation of the ankle brachial indices suggestive of decreased compliance in the setting of arteriolosclerosis. This may be masking peripheral arterial occlusive disease. The distal waveforms are normal. On the right, the posterior tibial ankle brachial index is 1.37. The dorsalis pedis ankle brachial index is 1.26. The digital brachial index is 0.94. On the left, the posterior tibial ankle brachial index is 1.31. The dorsalis pedis ankle brachial index is 1.29 and the digital brachial index is 0.91." MRI of the right foot obtained on 06/08/18, impression: "There is bone marrow replacement and edema in the proximal phalanx of the fifth digit with enhancement suggestive of osteomyelitis. Associated soft tissue swelling is noted. The remainder of the foot demonstrates bone marrow edema." CONSULTATIONS: Included Dr. Jameson from Orthopedic Surgery together with Dr. Strauss as well as Dr. Petty from Infectious Diseases. HOSPITALIZATION COURSE: Jose Nguyen is a 47-year-old male with a history of diabetes, who presented to the hospital on 06/08/18 with right fifth toe cellulitis. He was diagnosed as outpatient with cellulitis and treated with outpatient antibiotics. His CRP was above 100. MRI of the right foot showed osteomyelitis of the fifth toe. Dr. Jameson saw the patient in consultation. The patient was offered either amputation or conservative treatment with IV antibiotics. He chose to be treated with IV antibiotics. He continued to be treated with ceftriaxone, vancomycin, and Flagyl and later all limited to ceftriaxone and Flagyl once his wound cultures were MRSA positive. Dr. Petty saw the patient in consultation and recommended a total of 6 weeks of IV antibiotics treatment with ceftriaxone as well as 2 weeks p.o. Flagyl. The patient was placed with a midline during his hospital stay. He is going to be discharged home. The patient chose to come into infusion center for daily infusions with ceftriaxone. Dr. Petty saw the patient in consultation as mentioned above and will follow with the patient on an outpatient basis. The patient was also set up with outpatient wound care center and will follow up with orthopedic service as well. In regards of wound care, the patient is to use silver alginate to the wound to apply it on a daily basis and to wrap it with bandage. He is to be bearing on his right heel only. Please note that by the time of discharge, the patient's right foot cellulitis resolved completely. He still has an open wound, fissure-like opening underneath the right fifth digit on the right foot, but the area is not tender anymore. PHYSICAL EXAMINATION: At the time of discharge, blood pressure of 111/68, heart rate of 87 and regular, respiratory rate 18, oxygen saturation 99% on room air, temperature 98.2. General: The patient is a pleasant 47-year-old male, who is in no acute distress. Alert, awake, and oriented x3. HEENT: Head : Atraumatic, normocephalic. Eyes: Pupils are equal, reactive to light and accommodation. Oropharynx is clear. Mucosa moist. Neck: Supple. No JVD. No bruits bilaterally. Cardiovascular: Regular rate and rhythm. No murmur. Respiratory: Clear to auscultation bilaterally. Abdomen: Soft, nontender. Bowel sounds are present in all 4 quadrants. Extremities: There is no edema. Pulses are +2 bilaterally. No clubbing or cyanosis. On evaluation of the skin, the patient has underneath of the right fifth toe, a fissure-like opening approximately 1 cm deep, couple of millimeters wide, long at approximately 1 to 2 cm. There is no drainage and no cellulitis by the time of discharge. Please note that this is a short summary of the patient's hospital stay. Please refer to further medical records for details. TIME SPENT: Approximately 35 minutes were spent on the patient's discharge. [id number]/[facility] #: [id number] MTDD
== END 2018-06-13 13:45 | disposition home or self-care (01) | DRG 638 ==
LOC: ED 09:41 → MED 13:22
PROVIDERS: ADMIT Student in an Organized Health Care Education/Training Program; ATTEND Internal Medicine
DX: E11.69 Type 2 diabetes mellitus with other specified complication (principal); M86.171 Other acute osteomyelitis, right ankle and foot; L03.115 Cellulitis of right lower limb; M60.073 Infective myositis, right foot; B95.1 Streptococcus, group B, as the cause of diseases classified elsewhere; I10 Essential (primary) hypertension; E78.5 Hyperlipidemia, unspecified; E11.628 Type 2 diabetes mellitus with other skin complications; E11.51 Type 2 diabetes mellitus with diabetic peripheral angiopathy without gangrene; I70.90 Unspecified atherosclerosis; Z87.891 Personal history of nicotine dependence; Z83.3 Family history of diabetes mellitus; Z79.4 Long term (current) use of insulin; Z79.84 Long term (current) use of oral hypoglycemic drugs; Z79.899 Other long term (current) drug therapy
CPT/HCPCS: 36415; 80048; 80053; 80061; 80202; 83036; 83605; 83735; 84100; 84443; 85025; 85027; 85610; 85652; 86140; 87040; 87070; 87077; 87185; 87186; 87205; 87640; 87641; 90732; 93922; 99284; A9270-GY; A9579; J0692; J0696; J1650; J2270; J2405; J2543; J3370; J3490

== ENCOUNTER 2021-04-17 19:40 | Inpatient (IN) ==
[2021-04-17] MEDS ORDERED: Morphine 4 MG/ML VIAL (1 ml) IV ONE (21:56)
[2021-04-17 22:57] LABS: ABS Lymphocytes 1.5 10^3/ul (1.0-4.8); ABS Monocytes 0.6 10^3/ul (0-0.8); ABS Neutrophils 7.8 10^3/ul (1.5-7.7); Eosinophil % 0.5 %; Hematocrit 44 % (42-52); Hemoglobin 15.5 g/dL (14.0-18.0); Mean Corpuscular HGB Conc 35 g/dL (31-36); Mean Corpuscular Hemoglobin 30 pg (27-31); Mean Corpuscular Volume 85 fL (80-94); Mean Platelet Volume 8.6 fL (7.4-10.4); Platelet Count 170 10^3/uL (150-450); Red Blood Count 5.22 10^6 /uL (4.18-5.48); Red Cell Distribution Width 13 % (10-15)
[2021-04-17] MEDS ORDERED: Iodixanol (CONTRAST) 320 MG/ML 100 ML SDV IV ONE (23:12)
[2021-04-17 23:14] LABS: Albumin 4.3 g/dL (3.2-5.2); Albumin/Globulin Ratio 1.7 (1-3); Calcium 9.7 mg/dL (8.6-10.3); EGFR Non-African American 96.7 (>60); Globulin 2.6 g/dL (2-4); Potassium 3.4 mmol/L (3.5-5.0); Total Bilirubin 1.4 mg/dL (0.2-1.0); Total Protein 6.9 g/dL (6.4-8.9)
[2021-04-18] MEDS ORDERED: Dextrose 50% Syringe 50 ml 25 GM/50 ML SYRINGE IV PUSH PRN (00:37)
[2021-04-18] MEDS ORDERED: Potassium Chlor 20 meq TAB.ER PO ONE (00:40)
[2021-04-18] MEDS ORDERED: levETIRAcetam 1000MG IVPREMIX 1,000 MG/100 ML BAG IVPB ONE (00:44)
[2021-04-18 02:17] LABS: Urine Appearance Clear; Urine Bilirubin Negative (Negative); Urine Blood 1+ (Negative); Urine Color Yellow; Urine Glucose 3+(>=500 mg/dL) (Negative); Urine Ketones 1+ (Negative); Urine Nitrite Negative (Negative); Urine Protein 2+(100 mg/dL) (Negative); Urine Specific Gravity 1.048 (1.002-1.030); Urine Urobilinogen Negative (Negative)
[2021-04-18 02:19] LABS: Urine Bacteria Absent (Absent); Urine Red Blood Cell 1+(3-5/hpf) (Absent); Urine Squamous Epithelial Cell Present (Absent); Urine White Blood Cell Absent (Absent)
[2021-04-18] MEDS ORDERED: Labetalol IV 5 MG/ML 20 ml VIAL IV PUSH PRN (09:47)
[2021-04-19 06:31] LABS: ABS Eosinophils 0.2 10^3/ul (0-0.6); ABS Lymphocytes 1.7 10^3/ul (1.0-4.8); ABS Monocytes 0.5 10^3/ul (0-0.8); ABS Neutrophils 4.9 10^3/ul (1.5-7.7); Eosinophil % 2.4 %; Hematocrit 42 % (42-52); Hemoglobin 14.5 g/dL (14.0-18.0); Lymphocyte % 23.3 %; Mean Corpuscular HGB Conc 35 g/dL (31-36); Mean Corpuscular Hemoglobin 29 pg (27-31); Mean Corpuscular Volume 85 fL (80-94); Mean Platelet Volume 8.8 fL (7.4-10.4); Platelet Count 153 10^3/uL (150-450); Red Blood Count 4.96 10^6 /uL (4.18-5.48); Red Cell Distribution Width 13 % (10-15); White Blood Count 7.3 10^3/uL (3.5-10.8)
[2021-04-19 06:47] LABS: Calcium 8.5 mg/dL (8.6-10.3); EGFR African American 151.9 (>60); EGFR Non-African American 125.6 (>60); Potassium 3.8 mmol/L (3.5-5.0)
[2021-04-19 07:04] LABS: TSH Ultra Thyroid Stim Horm 1.49 mcIU/mL (0.34-5.60)
[2021-04-19 08:36] VITALS: BP 128/71
== END 2021-04-19 10:17 | disposition home or self-care (01) ==
LOC: ED 19:40 → ICU 04-18 01:00 → MEDTELE 04-18 17:04
PROVIDERS: ADMIT Student in an Organized Health Care Education/Training Program; ATTEND Internal Medicine